=== PATIENT | male | born 1955 | race Caucasian/White ===

== ENCOUNTER 2017-09-07 10:01 | Emergency (ER) | payer MEDICARE, OTHER, SELFPAY ==
[2017-09-07 10:10] VITALS: BP 170/87; PULSE 85; RESP 16; TEMP 36.6; O2SAT 98; BMI 43.7
--- NOTE | 2017-09-07 10:30 | ED.BACK ---
HPI - Back Pain/Injury General Chief Complaint: Back Pain/Injury Stated Complaint: ELBOW/BACK OF ARM HURTS,NAUSEA Time Seen by Provider: 09/07/17 10:14 Source: patient and family Mode of arrival: ambulatory Limitations: no limitations History of Present Illness HPI Narrative: 61-year-old male with chief complaint of reproducible right shoulder pain with radiation to his right neck. He denies any numbness, tingling or weakness. He denies any swelling nor erythema or warmth. He denies any known injury. He denies any chest pain, pressure or heaviness. He denies any shortness of breath. Patient states that he may have injured his shoulder while attempting to abduct down and get into a car, he is a rather large man MD Complaint: back pain Onset (ago): hour(s) Duration: constant Severity: moderate Quality: sharp Relieving factors: immobilization Exacerbating factors: movement and walking Related Data Home Medications Medication Instructions Recorded Confirmed atorvastatin [Lipitor] 80 mg PO HS #0 02/07/11 09/07/17 furosemide 40 mg PO DAILY #0 02/06/16 09/07/17 multivitamin [Multiple Vitamins] 1 tab PO QDAY #0 07/27/16 09/07/17 omega 4-gry-jtv-fish oil [Fish Oil] 1,000 mg PO BID #0 07/27/16 09/07/17 vitamin B complex [B 1 tab PO QDAY #0 07/27/16 09/07/17 Complex-Vitamin B12] butalbital-acetaminophen [Bupap] 1 tab PO BID #0 08/10/16 09/07/17 amlodipine 10 mg PO DAILY 09/07/17 09/07/17 aspirin 81 mg PO DAILY 09/07/17 09/07/17 carvedilol 25 mg PO QID 09/07/17 09/07/17 clonidine 1 patch TOPICAL QWEEK 09/07/17 09/07/17 fluticasone 1 spray INTRANASAL DAILY 09/07/17 09/07/17 gabapentin [Neurontin] 1 tab PO BEDTIME 09/07/17 09/07/17 insulin aspart U-100 [Novolog 1 dose SUB-Q DIRECTED 09/07/17 09/07/17 Flexpen U-100 Insulin] insulin glargine [Lantus Solostar 1 dose SUB-Q DIRECTED 09/07/17 09/07/17 U-100 Insulin] lisinopril 40 mg PO DAILY 09/07/17 09/07/17 oxycodone-acetaminophen 1 tab PO Q8H PRN 09/07/17 09/07/17 Previous Rx's Medication Instructions Recorded methocarbamol [Robaxin] 500 mg PO QID PRN #14 tab 09/07/17 Allergies Allergy/AdvReac Type Severity Reaction Status Date / Time No Known Allergies Allergy Uncoded 05/26/17 12:17 Review of Systems Review of Systems All systems reviewed & are unremarkable except as noted in HPI and below Constitutional Denies chills, Denies fever(s), Denies lethargy and Denies weakness Eyes Denies change in vision, Denies eye discharge, Denies irritation and Denies loss of vision ENT Ears, Nose, Mouth, and Throat: Denies change in voice, Denies neck pain and Denies sore throat Cardiovascular Denies chest pain, Denies irregular heart rhythm, Denies lightheadedness, Denies palpitations, Denies dyspnea, Denies dyspnea on exertion and Denies orthopnea Respiratory Denies cough, Denies dyspnea, Denies dyspnea on exertion and Denies wheezing Gastrointestinal Gastrointestinal: Denies abdominal pain, Denies change in bowel habits, Denies diarrhea, Denies nausea and Denies vomiting Genitourinary Denies hematuria, Denies flank pain, Denies urinary incontinence and Denies urinary urgency Musculoskeletal Reports limited range of motion and Denies neck pain Integumentary/Breasts Denies pruritus, Denies erythema, Denies rash and Denies wounds Neurologic Denies confusion, Denies loss of vision and Denies weakness Psychiatric Denies anxiety, Denies confusion, Denies depression, Denies homicidal ideation and Denies suicidal ideation Endocrine Denies palpitations Hematologic/Lymphatic Denies easy bruising Allergic/Immunologic Denies wheezing PFSH Social History Smoking Status: Former smoker Exam Initial Vital Signs Initial Vital Signs: Vital Signs Temperature 98 F 09/07/17 10:10 Pulse Rate 85 09/07/17 10:10 Respiratory Rate 16 09/07/17 10:10 Blood Pressure 170/87 H 09/07/17 10:10 Pulse Oximetry 98 09/07/17 10:10 Const General: cooperative and well developed Nutritional Appearance: well nourished Orientation: alert, awake, oriented x3 and not confused [facility] Head: normocephalic and atraumatic Ears: external ears normal and TM's normal bilaterally Nose: external nose normal and No nasal discharge Face and sinus: sinuses nontender, face symmetric, no sinus tenderness and No dry mucous membranes Mouth: oral mucosae normal and moist mucous membranes Teeth and gingiva: dentition normal Throat: tonsils normal and uvula midline Eyes General: appearance normal, both eyes and all related structures Eyelids: eyelids normal Conjunctivae: conjunctivae normal Sclera: sclerae normal Pupils: PERRL EOM: EOM intact bilaterally Neck Neck: normal visual inspection, trachea midline, No lymphadenopathy, No midline deformity and No JVD Lymphatic: No lymphedema Other: Patient is tender to palpation in right traps Chest Chest: normal inspection of the chest Resp Effort & Inspection: normal respiratory effort, able to speak in complete sentences, no respiratory distress and no use of accessory muscles Auscultation: clear to auscultation bilaterally, no rales, no rhonchi and no wheezes Cardio Rate: regular rate Rhythm: regular rhythm Heart Sounds: no click, no gallops, no murmurs and no rubs Pulses: normal peripheral pulses GI Inspection: non-distended Palpation: soft, no hepatosplenomegaly, No guarding, No pulsatile mass and No tender Auscultation: normal bowel sounds Back/Spine/Pelvis Back: No CVA tenderness Cervical Spine: cervical ROM normal and No pain with cervical ROM Thoracic/Lumbar Spine: thoracic and lumbar spine normal to inspection Skin General: no rashes or lesions noted, No jaundice and No petechiae Neuro General: alert, oriented x3, gait normal and no focal motor deficits Speech: speech normal Extrem General: full ROM, no clubbing, cyanosis or edema, no pedal edema and no calf tenderness Right upper extremity: shoulder/upper arm (Patient has significant tenderness, sharp and stabbing with range of motion of the right shoulder. There is no redness, warmth or swelling. Patient is neurovascularly intact distal to the shoulder. No problems with elbow) Other: Patient feels better and a sling Psych Appearance: well kempt Mental Status: mental status grossly normal Attitude: cooperative Thought Content: normal and suicidality Judgment: judgment good Procedures Orthopedic Splinting/Casting Injury #1: Side: right Upper Extremity Injury Location: shoulder Upper Extremity Immobilizer: sling/shoulder immobilizer Discharge Plan Departure Patient Disposition: Home, Self-Care Clinical Impression: Muscle strain of right shoulder Discharge Date/Time: 09/07/17 11:56 Interventions: ED Discharge Assessment Last Done: 09/07/17 11:55 Instructions: DI for Shoulder Sprain Activity Restrictions/Additional Instructions: *You have been diagnosed with [ right shoulder strain ] *What to do: *Take medications as directed *Follow up with your primary care provider in 2-3 days, call for an appointment. Let them know you were seen in the Emergency Department and that we ask that you be seen in follow up *Return to ER if you should have any new, worsening or concerning symptoms, such as [increasing pain, weakness, numbness or tingling. Additionally the presence of swelling, redness, warmth is concerning as well ] Prescriptions: New methocarbamol [Robaxin] 500 mg tablet 500 mg PO QID PRN (Reason: spasm) Qty: 14 RF: 0 No Action atorvastatin [Lipitor] 80 MG tablet 80 mg PO HS Qty: 0 RF: 0 furosemide 40 MG tablet 40 mg PO DAILY Qty: 0 RF: 0 multivitamin [Multiple Vitamins] 1 EACH tablet 1 tab PO QDAY Qty: 0 RF: 0 vitamin B complex [B Complex-Vitamin B12] 1 EACH tablet 1 tab PO QDAY Qty: 0 RF: 0 omega 8-ejr-bae-fish oil [Fish Oil] 1,000 MG capsule 1,000 mg PO BID Qty: 0 RF: 0 butalbital-acetaminophen [Bupap] 50 MG/300 MG tablet 1 tab PO BID Qty: 0 RF: 0 carvedilol 25 mg tablet 25 mg PO QID RF: 0 gabapentin [Neurontin] 600 mg tablet 1 tab PO BEDTIME RF: 0 clonidine 0.1 mg/24 hr patch weekly 1 patch Topical QWEEK RF: 0 oxycodone-acetaminophen 5-325 mg tablet 1 tab PO Q8H PRN (Reason: Pain, Severe) RF: 0 amlodipine 10 mg tablet 10 mg PO DAILY RF: 0 lisinopril 40 mg tablet 40 mg PO DAILY RF: 0 fluticasone 50 mcg/actuation spray,suspension 1 spray Intranasal DAILY RF: 0 insulin aspart U-100 [Novolog Flexpen U-100 Insulin] 100 unit/mL insulin pen 1 dose Sub-Q DIRECTED RF: 0 insulin glargine [Lantus Solostar U-100 Insulin] 100 unit/mL (3 mL) insulin pen 1 dose Sub-Q DIRECTED RF: 0 aspirin 81 MG tablet,delayed release (DR/EC) 81 mg PO DAILY RF: 0
--- NOTE | 2017-09-07 10:44 | PC.NURSE ---
Right shoulder pain that radiates to right elbow; Increases with any movement;
[2017-09-07 11:09] VITALS: BP 166/74; PULSE 73; RESP 15; O2SAT 98
== END 2017-09-07 11:56 | disposition home or self-care (01) ==
PROVIDERS: Emergency Provider Emergency Medicine; PCP Family Medicine
DX: S46.911A Strain of unspecified muscle, fascia and tendon at shoulder and upper arm level, right arm, initial encounter (principal); T73.3XXA Exhaustion due to excessive exertion, initial encounter
CPT/HCPCS: 93005; 99283

== ENCOUNTER 2017-09-13 16:38 | Emergency (ER) | payer MEDICARE, OTHER, SELFPAY ==
[2017-09-13 16:54] VITALS: BP 164/90; PULSE 85; RESP 16; TEMP 37; O2SAT 100; BMI 46.0
--- NOTE | 2017-09-13 17:51 | ED_ITS ---
HPI - Back Pain/Injury <Nereida Langston PA-C - Last Filed: 09/13/17 22:13> General Chief Complaint: Back Pain/Injury Stated Complaint: RIGHT SIDE UPPER PAIN Time Seen by Provider: 09/13/17 17:50 Source: patient Mode of arrival: ambulatory Limitations: no limitations History of Present Illness HPI Narrative: This 61-year-old male returns to the ED due to persistent right thoracic area pain. He was seen here for this last week, felt to be musculoskeletal/muscle spasm. He states that he has been taking Percocet as well as Robaxin, though none today. He states that he does not think that has been helping much. He denies any new trauma. He denies any chest pain or dyspnea, new swelling or pain in his legs.. He states that pain is usually around the right-sided lower rib area, mostly in the back but can radiate through to the front. He states it is acutely worse if he sneezes, coughs, or with certain movements. He denies any abdominal pain, nausea, or vomiting. Denies any appetite change or pain with eating. He has had some constipation since taking Percocet but did have a bowel movement today. He denies any new urinary symptoms, rash, or other new complaints with this. Pain is not improving Related Data Home Medications Medication Instructions Recorded Confirmed atorvastatin [Lipitor] 80 mg PO BEDTIME #0 02/07/11 09/13/17 furosemide 40 mg PO DAILY #0 02/06/16 09/13/17 multivitamin [Multiple Vitamins] 1 tab PO QDAY #0 07/27/16 09/13/17 omega 3-gqa-rnx-fish oil [Fish Oil] 1,000 mg PO BID #0 07/27/16 09/13/17 vitamin B complex [B 1 tab PO QDAY #0 07/27/16 09/13/17 Complex-Vitamin B12] butalbital-acetaminophen [Bupap] 1 tab PO BID #0 08/10/16 09/13/17 amlodipine 10 mg PO DAILY 09/07/17 09/13/17 aspirin 81 mg PO DAILY 09/07/17 09/13/17 carvedilol 25 mg PO QID 09/07/17 09/13/17 clonidine 1 patch TOPICAL QWEEK 09/07/17 09/13/17 fluticasone 1 spray INTRANASAL DAILY 09/07/17 09/13/17 gabapentin [Neurontin] 1 tab PO BEDTIME 09/07/17 09/13/17 insulin aspart U-100 [Novolog 1 dose SUB-Q DIRECTED 09/07/17 09/13/17 Flexpen U-100 Insulin] insulin glargine [Lantus Solostar 1 dose SUB-Q DIRECTED 09/07/17 09/13/17 U-100 Insulin] lisinopril 40 mg PO DAILY 09/07/17 09/13/17 oxycodone-acetaminophen 1 tab PO Q8H PRN 09/07/17 09/13/17 hydrochlorothiazide 12.5 mg PO DAILY 09/13/17 09/13/17 Previous Rx's Medication Instructions Recorded methocarbamol [Robaxin] 500 mg PO QID PRN #14 tab 09/07/17 diazepam [Valium] 5 mg PO Q8H PRN #10 tab 09/13/17 Allergies Allergy/AdvReac Type Severity Reaction Status Date / Time No Known Allergies Allergy Verified 09/13/17 20:16 Review of Systems <Nereida Langston PA-C - Last Filed: 09/13/17 22:13> Review of Systems All systems reviewed & are unremarkable except as noted in HPI and below Exam <Nereida Langston PA-C - Last Filed: 09/13/17 22:13> Narrative Exam Narrative: GENERAL APPEARANCE: Patient lying on right side, in NAD HEENT: PERRL, EOMI, no scleral icterus NECK: Supple LUNGS: Clear to auscultation bilaterally. HEART: Rate and rhythm regular, normal S1 and S2, no S3 or S4. CHEST: Tender to palpation along the right 12th rib anterior and lateral border ABDOMEN: Obese, nontender, nondistended, bowel sounds present x 4 quadrants, no masses palpable, no hepatosplenomegaly. No CVAT EXTREMITIES: No edema, no calf tenderness DERMATOLOGIC: No jaundice or exanthem NEUROLOGIC: Alert and oriented with normal speech and coordination MUSCULOSKELETAL: Full range of motion of the right upper extremity. Tender with move from supine to sit, no tenderness over the cervical or thoracic spine. Appears to have some left trapezius spasm after moving to sit, no persistent tenderness aside from right 12th rib as noted above Initial Vital Signs Initial Vital Signs: Vital Signs Temperature 98.6 F 09/13/17 16:54 Pulse Rate 85 09/13/17 16:54 Respiratory Rate 16 09/13/17 16:54 Blood Pressure 164/90 H 09/13/17 16:54 Pulse Oximetry 100 09/13/17 16:54 <Leslie Storey DO - Last Filed: 09/14/17 01:44> Initial Vital Signs Initial Vital Signs: Vital Signs Temperature 98.6 F 09/13/17 16:54 Pulse Rate 85 09/13/17 16:54 Respiratory Rate 16 09/13/17 16:54 Blood Pressure 164/90 H 09/13/17 16:54 Pulse Oximetry 100 09/13/17 16:54 Course <Nereida Langston PA-C - Last Filed: 09/13/17 22:13> Additional Information: Patient is resting comfortably lying supine prior to discharge. He reported that diazepam had helped significantly versus previous trial of Robaxin. Advised no acute findings as far as gallbladder issues, rib fracture or lab abnormality. He does have chronic renal insufficiency. Advised return if any acutely worsening symptoms, otherwise trial of these medications and follow up with his PCP. He is agreeable Orders Ordered: ED Orders 09/13/17 18:21 US abdomen complete Stat XR ribs RT min 3V w CXR1V Stat 09/13/17 18:34 Complete Blood Count AUTO DIFF Stat Comprehensive Metabolic Panel Stat Lipase Stat Discontinued Medications Diazepam (Valium) 5 mg PO NOW ONE Stop: 09/13/17 20:15 Last Admin: 09/13/17 20:29 Dose: 5 mg Oxycodone/Acetaminophen (Percocet 5/325) 1 tab PO NOW ONE Stop: 09/13/17 20:15 Last Admin: 09/13/17 20:29 Dose: 1 tab Vital Signs - 8 hr 09/13/17 19:52 09/13/17 21:28 Temperature 98.0 F Pulse Rate 73 70 Respiratory Rate 16 17 Blood Pressure [Left Arm] 160/83 H 158/80 H Pulse Oximetry 97 96 <Leslie Storey DO - Last Filed: 09/14/17 01:44> Orders Ordered: ED Orders 09/13/17 18:21 US abdomen complete Stat XR ribs RT min 3V w CXR1V Stat 09/13/17 18:34 Complete Blood Count AUTO DIFF Stat Comprehensive Metabolic Panel Stat Lipase Stat Discontinued Medications Diazepam (Valium) 5 mg PO NOW ONE Stop: 09/13/17 20:15 Last Admin: 09/13/17 20:29 Dose: 5 mg Oxycodone/Acetaminophen (Percocet 5/325) 1 tab PO NOW ONE Stop: 09/13/17 20:15 Last Admin: 09/13/17 20:29 Dose: 1 tab Vital Signs - 8 hr 09/13/17 19:52 09/13/17 21:28 Temperature 98.0 F Pulse Rate 73 70 Respiratory Rate 16 17 Blood Pressure [Left Arm] 160/83 H 158/80 H Pulse Oximetry 97 96 MDM - Back Pain/Injury <Nereida Langston PA-C - Last Filed: 09/13/17 22:13> Lab Data Attestation: I reviewed the patient's lab results. Result diagrams: 09/13/17 18:34 09/13/17 18:34 Lab Results 09/13/17 09/13/17 Range/Units 18:34 18:34 WBC 7.3 (4.5-11.0) X10^3/uL RBC 5.58 (4.5-5.9) X10^6/uL Hgb 17.3 (13.5-17.5) g/dL Hct 50.7 (41-53) % MCV 90.9 (80-100) fL MCH 31.1 (26-34) PG MCHC 34.2 (30-36) % RDW 15.0 H (11.6-14.8) % Plt Count 179 (150-400) X10^3/uL Neut % (Auto) 79.6 H (50-75) % Lymph % (Auto) 8.9 L (25-40) % Louisa % (Auto) 9.2 (3-14) % Eos % (Auto) 1.8 L (2-4) % Baso % (Auto) 0.5 (0-2) % Neut # (Auto) 5800 (9131-4184) /uL Sodium 144 (137-145) mmol/L Potassium 4.8 (3.4-5.1) mmol/L Chloride 105 (98-107) mmol/L Carbon Dioxide 29 (22-32) mmol/L BUN 42 H (9-20) mg/dL Creatinine 2.20 H (0.66-1.25) mg/dL Estimated GFR 30.8 L (>60) mL/min BUN/Creatinine Ratio 19.1 (6-22) Glucose 98 (70-100) mg/dL Calcium 10.0 (8.4-10.2) mg/dL Total Bilirubin 0.9 (0.2-1.3) mg/dL AST 42 (17-59) IU/L ALT 39 (21-72) IU/L Alkaline Phosphatase 71 (38-126) U/L Total Protein 7.6 (6.3-8.2) g/dL Albumin 4.5 (3.5-5.0) g/dL Globulin 3.1 (1.7-4.1) g/dL Albumin/Globulin Ratio 1.5 (1.0-2.8) Lipase 46 (23-300) U/L Imaging Data Chest x-ray: Radiologist's impression: View Report History Print [address] [address] XRay Report Signed Patient: Hardeep Will MR#: [id number] : 1955 Acct:[id number] Age/Sex: 61 / M Date of Service: 09/13/17 Loc: ED Accession Number: [id number] Procedure: XR ribs RT min 3V w CXR1V Ordering Provider: Nereida Langston P.A-C PROCEDURE: XR RIBS RT MIN 3V W CXR 1V INDICATIONS: pain TECHNIQUE: 3 views of the right ribs were acquired, along with a single view chest. COMPARISON: formerly [facility], CHEST 2 VIEW, 07/22/2015, 12:33. FINDINGS: Surgical changes and devices: None. Bones and chest wall: No fractures or dislocations. No suspicious bony lesions. Overlying soft tissues appear unremarkable. Lungs and pleura: No pleural effusions or pneumothorax. Lungs appear clear. Mediastinum: Mediastinal contours appear normal. Heart size is normal. IMPRESSION: No visualized acute fracture or dislocation. However, if clinical concern and/or pain persist, short interval imaging followup in 7-10 days is recommended , as occult injury cannot be definitively excluded. Dictated by: Jesenia Hale M.D. on 09/13/2017 at 19:20 Approved by: Jesenia Hale M.D. on 09/13/2017 at 19:21 US - abdomen: Radiologist's impression: View Report History [address] [address] Ultrasound Report Signed Patient: Hardeep Will MR#: [id number] : 1955 Acct:[id number] Age/Sex: 61 / M Date of Service: 09/13/17 Loc: ED Accession Number: [id number] Procedure: US abdomen complete Ordering Provider: Nereida Langston P.A-C PROCEDURE: US ABDOMEN COMPLETE INDICATIONS: R. UQ pain TECHNIQUE: Real-time scanning was performed of the abdominal and retroperitoneal organs, with image documentation. COMPARISON: None. FINDINGS: Liver: Liver is not well-visualized secondary to patient body habitus. It was portions demonstrate steatosis. Gallbladder: Gallbladder demonstrates no visualized stones. Wall is within normal limits measuring 2.6 mm. Biliary ducts: Intrahepatic bile ducts are non-dilated. Extrahepatic bile duct caliber measures 5 mm. Normal is 6-7 mm or less in diameter, or 10 mm or less post-cholecystectomy. Pancreas: Not visualized. Spleen: Not visualized. Kidneys: Kidneys are normal in size and echotexture. Right kidney measures 13.0 cm long; left kidney measures 13.5 cm long. No hydronephrosis or nephrolithiasis. No solid masses. Aorta: Not visualized. Iliacs: Not visualized. IVC: Not visualized. Miscellaneous: No free abdominal fluid. IMPRESSION: Limited visualization of multiple areas secondary to patient body habitus. However, this was portions are unremarkable. Dictated by: Jesenia Hale M.D. on 09/13/2017 at 20:21 Approved by: Jesenia Hale M.D. on 09/13/2017 at 20:22 <Leslie Storey DO - Last Filed: 09/14/17 01:44> Lab Data Lab Results 09/13/17 09/13/17 Range/Units 18:34 18:34 WBC 7.3 (4.5-11.0) X10^3/uL RBC 5.58 (4.5-5.9) X10^6/uL Hgb 17.3 (13.5-17.5) g/dL Hct 50.7 (41-53) % MCV 90.9 (80-100) fL MCH 31.1 (26-34) PG MCHC 34.2 (30-36) % RDW 15.0 H (11.6-14.8) % Plt Count 179 (150-400) X10^3/uL Neut % (Auto) 79.6 H (50-75) % Lymph % (Auto) 8.9 L (25-40) % Louisa % (Auto) 9.2 (3-14) % Eos % (Auto) 1.8 L (2-4) % Baso % (Auto) 0.5 (0-2) % Neut # (Auto) 5800 (0210-8723) /uL Sodium 144 (137-145) mmol/L Potassium 4.8 (3.4-5.1) mmol/L Chloride 105 (98-107) mmol/L Carbon Dioxide 29 (22-32) mmol/L BUN 42 H (9-20) mg/dL Creatinine 2.20 H (0.66-1.25) mg/dL Estimated GFR 30.8 L (>60) mL/min BUN/Creatinine Ratio 19.1 (6-22) Glucose 98 (70-100) mg/dL Calcium 10.0 (8.4-10.2) mg/dL Total Bilirubin 0.9 (0.2-1.3) mg/dL AST 42 (17-59) IU/L ALT 39 (21-72) IU/L Alkaline Phosphatase 71 (38-126) U/L Total Protein 7.6 (6.3-8.2) g/dL Albumin 4.5 (3.5-5.0) g/dL Globulin 3.1 (1.7-4.1) g/dL Albumin/Globulin Ratio 1.5 (1.0-2.8) Lipase 46 (23-300) U/L Discharge Plan Departure Patient Disposition: Home, Self-Care Clinical Impression: Intercostal muscle strain, Back pain, thoracic Discharge Date/Time: 09/13/17 21:54 Interventions: ED Discharge Assessment Last Done: 09/13/17 21:53 Instructions: DI for Costochondritis, DI for Back Spasm Activity Restrictions/Additional Instructions: I have given you instructions for costochondritis because this is a similar condition to the rib pain you are having. You can continue the Percocet that you have already been prescribed as needed, however since the methocarbamol has not been helpful for you. You can take the Valium/diazepam as needed for muscle spasm. Remember that these can make you sleepy. Please follow-up with your PCP in the next few days to determine whether any other treatment, such as physical therapy may be helpful. You can also try your lidocaine patches along the rib to see if this is helpful. It is also safe to use ice and heat to see if these are helpful. No evidence of gallbladder problem or other issue was found on your imaging or blood work today, however if you have any acutely worsening symptoms you should return Prescriptions: New diazepam [Valium] 5 mg tablet 5 mg PO Q8H PRN (Reason: muscle spasm) Qty: 10 RF: 0 No Action atorvastatin [Lipitor] 80 MG tablet 80 mg PO BEDTIME Qty: 0 RF: 0 furosemide 40 MG tablet 40 mg PO DAILY Qty: 0 RF: 0 multivitamin [Multiple Vitamins] 1 EACH tablet 1 tab PO QDAY Qty: 0 RF: 0 vitamin B complex [B Complex-Vitamin B12] 1 EACH tablet 1 tab PO QDAY Qty: 0 RF: 0 omega 3-xij-ufb-fish oil [Fish Oil] 1,000 MG capsule 1,000 mg PO BID Qty: 0 RF: 0 butalbital-acetaminophen [Bupap] 50 MG/300 MG tablet 1 tab PO BID Qty: 0 RF: 0 carvedilol 25 mg tablet 25 mg PO QID RF: 0 gabapentin [Neurontin] 600 mg tablet 1 tab PO BEDTIME RF: 0 clonidine 0.1 mg/24 hr patch weekly 1 patch Topical QWEEK RF: 0 oxycodone-acetaminophen 5-325 mg tablet 1 tab PO Q8H PRN (Reason: Pain, Severe) RF: 0 amlodipine 10 mg tablet 10 mg PO DAILY RF: 0 lisinopril 40 mg tablet 40 mg PO DAILY RF: 0 fluticasone 50 mcg/actuation spray,suspension 1 spray Intranasal DAILY RF: 0 insulin aspart U-100 [Novolog Flexpen U-100 Insulin] 100 unit/mL insulin pen 1 dose Sub-Q DIRECTED RF: 0 insulin glargine [Lantus Solostar U-100 Insulin] 100 unit/mL (3 mL) insulin pen 1 dose Sub-Q DIRECTED RF: 0 aspirin 81 MG tablet,delayed release (DR/EC) 81 mg PO DAILY RF: 0 methocarbamol [Robaxin] 500 mg tablet 500 mg PO QID PRN (Reason: spasm) Qty: 14 RF: 0 hydrochlorothiazide 12.5 mg tablet 12.5 mg PO DAILY RF: 0 Referrals: Judy Mcgrath DO [Primary Care Provider] - <Leslie Storey DO - Last Filed: 09/14/17 01:44> Cosign ED Attending Cosashleeature Attestation: I was immediately available in the department for consultation. Documentation has been reviewed. I agree with assessment and plan.
--- NOTE | 2017-09-13 18:21 | DI.US.S_ITS ---
PROCEDURE: US ABDOMEN COMPLETE INDICATIONS: R. UQ pain TECHNIQUE: Real-time scanning was performed of the abdominal and retroperitoneal organs, with image documentation. COMPARISON: None. FINDINGS: Liver: Liver is not well-visualized secondary to patient body habitus. It was portions demonstrate steatosis. Gallbladder: Gallbladder demonstrates no visualized stones. Wall is within normal limits measuring 2.6 mm. Biliary ducts: Intrahepatic bile ducts are non-dilated. Extrahepatic bile duct caliber measures 5 mm. Normal is 6-7 mm or less in diameter, or 10 mm or less post-cholecystectomy. Pancreas: Not visualized. Spleen: Not visualized. Kidneys: Kidneys are normal in size and echotexture. Right kidney measures 13.0 cm long; left kidney measures 13.5 cm long. No hydronephrosis or nephrolithiasis. No solid masses. Aorta: Not visualized. Iliacs: Not visualized. IVC: Not visualized. Miscellaneous: No free abdominal fluid. IMPRESSION: Limited visualization of multiple areas secondary to patient body habitus. However, this was portions are unremarkable. Dictated by: Jesenia Hale M.D. on 09/13/2017 at 20:21 Approved by: Jesenia Hale M.D. on 09/13/2017 at 20:22
--- NOTE | 2017-09-13 18:21 | DI.RAD.S_ITS ---
PROCEDURE: XR RIBS RT MIN 3V W CXR 1V INDICATIONS: pain TECHNIQUE: 3 views of the right ribs were acquired, along with a single view chest. COMPARISON: [facility], , CHEST 2 VIEW, 07/22/2015, 12:33. FINDINGS: Surgical changes and devices: None. Bones and chest wall: No fractures or dislocations. No suspicious bony lesions. Overlying soft tissues appear unremarkable. Lungs and pleura: No pleural effusions or pneumothorax. Lungs appear clear. Mediastinum: Mediastinal contours appear normal. Heart size is normal. IMPRESSION: No visualized acute fracture or dislocation. However, if clinical concern and/or pain persist, short interval imaging followup in 7-10 days is recommended, as occult injury cannot be definitively excluded. Dictated by: Jesenia Hale M.D. on 09/13/2017 at 19:20 Approved by: Jesenia Hale M.D. on 09/13/2017 at 19:21
[2017-09-13 18:47] LABS: Add Manual Diff / Slide Review NO; Basophils Percent Auto 0.5 % (0-2); Eosinophils Percent Auto 1.8 % (2-4); Hematocrit 50.7 % (41-53); Hemoglobin 17.3 g/dL (13.5-17.5); Lymphocytes Percent Auto 8.9 % (25-40); Mean Corpuscular HGB Conc 34.2 % (30-36); Mean Corpuscular Hemoglobin 31.1 PG (26-34); Mean Corpuscular Volume 90.9 fL (80-100); Monocytes Percent Auto 9.2 % (3-14); Neutrophils Absolute Auto 5800 /uL (3000-5900); Neutrophils Percent Auto 79.6 % (50-75); Platelet Count 179 X10^3/uL (150-400); Red Blood Cell Count 5.58 X10^6/uL (4.5-5.9); White Blood Cell Count 7.3 X10^3/uL (4.5-11.0)
[2017-09-13 18:54] LABS: Alanine Aminotransferase 39 IU/L (21-72); Albumin 4.5 g/dL (3.5-5.0); Albumin Globulin Ratio 1.5 (1.0-2.8); Alkaline Phosphatase 71 U/L (38-126); Aspartate Aminotransferase 42 IU/L (17-59); BUN Creatinine Ratio 19.1 (6-22); Bilirubin Total 0.9 mg/dL (0.2-1.3); Blood Urea Nitrogen 42 mg/dL (9-20); Carbon Dioxide 29 mmol/L (22-32); Chloride 105 mmol/L (98-107); Estimated Glomerular Filt Rate 30.8 mL/min (>60); Globulin 3.1 g/dL (1.7-4.1); Glucose 98 mg/dL (70-100); HEMOLYSIS < 15 (0-50); Lipase 46 U/L (23-300); Potassium 4.8 mmol/L (3.4-5.1); Sodium 144 mmol/L (137-145); Total Protein 7.6 g/dL (6.3-8.2)
[2017-09-13 19:52] VITALS: BP 160/83; PULSE 73; RESP 16; TEMP 36.7; O2SAT 97
[2017-09-13] MEDS: diazePAM 5 MG TABLET PO (20:29)
[2017-09-13] MEDS: OXYCODONE/ACETAMINOPHEN 5/325 TABLET 1 TAB PO (20:29)
[2017-09-13 21:28] VITALS: BP 158/80; PULSE 70; RESP 17; O2SAT 96
== END 2017-09-13 21:54 | disposition home or self-care (01) ==
PROVIDERS: Emergency Provider Internal Medicine; PCP Family Medicine
DX: S29.011A Strain of muscle and tendon of front wall of thorax, initial encounter (principal); M54.6 Pain in thoracic spine
CPT/HCPCS: 36415; 71101; 76700; 80053; 83690; 85025; 99282; 99285

== ENCOUNTER → 2017-11-18 12:20 | Outpatient (CLI) | payer MEDICARE, OTHER, SELFPAY ==
--- NOTE | 2017-11-18 | DI.ECHO.S_ITS ---
[place] [facility] +---------+ : : [address] : : : : [id number] : : : : Phone: [phone] Echocardiogram Report + + :Name: ASHTYN VELA Study Date: 11/18/2017 Height: 75 in : :[facility] Exam Location: [facility] Weight: 354 lb : : Gender: Male BSA: 2.8 m2 : :: 1955 Age: 62 yrs BP: 142/80 mmHg: :Reason For Study: PERSISTENT A FIB : :Ordering Physician: Christel : :Nunu Rick Performed By: Nadege Smart : :Referring: CHRISTEL RICK : + + Interpretation Summary 1) Mild concentric left ventricular hypertrophy with normal size, wall motion, and systolic function (EF 55-60%). 2) Normal right ventricular size and function. 3) No significant valvular abnormalities. 4) The IVC is dilated (diameter is greater than 2.1 cm) and it collapses less than 50% with a sniff. This suggests a high right atrial pressure of 15 mm Hg. 5) Compared to the Echo done 08/22/2014, no significant change. Procedure: A two-dimensional transthoracic echocardiogram with color flow and Doppler was performed. The study quality was technically difficult. Comparison is made with the echocardiogram of 08/22/14. A contrast injection of Definity was performed to improve assessment of LV function. The patient was in atrial fibrillation with heart rates between 73 and 93 bpm during the exam. Left Ventricle: There is mild concentric left ventricular hypertrophy. The left ventricle is normal in size. The left ventricular ejection fraction is normal. The ejection fraction is estimated to be 55-60%. There are no focal wall motion abnormalities. Diastolic function could not be accurately assessed due to atrial fibrillation. Diastolic parameters suggest a relaxation abnormality of the left ventricle, consistent with probable normal filling pressures. Right Ventricle: The right ventricle is normal in size and function. Atria: The left atrium is mildly dilated. Right atrial size is normal. There is no Doppler evidence for an interatrial shunt. Mitral Valve: The mitral valve is normal. There is trace mitral regurgitation. Aortic Valve: The aortic valve is trileaflet. There is mild aortic valve sclerosis. The aortic valve opens well. There is no aortic valve stenosis. No aortic regurgitation is present. Tricuspid Valve: The tricuspid valve is normal. There is trace tricuspid regurgitation. The right ventricular systolic pressure is estimated to be at least least 41 mmHg based on an estimated right atrial pressure of 15 mm Hg. Pulmonic Valve: The pulmonic valve is not well seen, but is grossly normal. There is a trace or physiologic amount of pulmonic regurgitation. Great Vessels: The aortic root is normal size. The ascending aorta is normal in size. The aortic arch could not be visualized. The pulmonary artery branches are not well visualized. The IVC is dilated (diameter is greater than 2.1 cm) and it collapses less than 50% with a sniff. This suggests a high right atrial pressure of 15 mm Hg. Pericardium/ Pleura There is no pericardial effusion. There is no pleural effusion. MMode/2D Measurements & Calculations LVIDd: 4.8 cm LVOT diam: 2.7 cm LVIDs: 3.4 cm Ao root diam: 3.9 cm FS: 29.1 % asc Aorta Diam: 3.5 cm EPSS: 0.50 cm IVSd: 1.3 cm LVPWd: 1.3 cm LV millan. diameter/BSA (cm/m^2): 1.7 LV sys. diameter/BSA (cm/m^2): 1.2 LA A2 area: 32.6 cm2 RA long axis: 6.1 cm LA A4 area: 29.7 cm2 RA area: 24.4 cm2 LA length (vol): 7.3 cm RA vol: 82.7 ml LA vol: 112.3 ml RA : 29.6 ml/m2 LA vol index: 40.1 ml/m2 IVC diam: 2.8 cm RVD1 (basal): 4.2 cm TAPSE: 1.7 cm Doppler Measurements & Calculations Ao V2 max: 111.0 cm/sec LVOT Max Zane: 95.9 cm/sec Ao V2 mean: 78.5 cm/sec LV V1 max P.7 mmHg Ao max P.0 mmHg LV V1 VTI: 18.5 cm Ao mean P.7 mmHg GLADIS(I,D): 5.1 cm2 Ao V2 VTI: 21.0 cm GLADIS(V,D): 5.0 cm2 sev ratio: 0.88 GLADIS indexed to BSA (cm^2/m^2): 1.8 MV E max zane: 134.3 cm/sec TR max zane: 253.3 cm/sec Med Peak E' Zane: 10.3 cm/sec TR max P.7 mmHg E/E' med: 13.1 PA V2 max: 70.9 cm/sec Lat Peak E' Zane: 12.4 cm/sec PA V2 mean: 50.6 cm/sec E/E' lat: 10.9 PA mean P.1 mmHg E/e' average: 12.0 PA pr(Accel): 21.6 mmHg Reading Physician:02:11 PM
== END ==
PROVIDERS: PCP Family Medicine; Visit Provider Internal Medicine Cardiovascular Disease
DX: I35.8 Other nonrheumatic aortic valve disorders (principal); I48.1 Persistent atrial fibrillation
CPT/HCPCS: C8929; Q9957

== ENCOUNTER 2017-12-03 06:11 | Day surgery (SDC) | payer MEDICARE, OTHER, SELFPAY ==
[2017-11-22 15:29] VITALS: BMI 45.2
[2017-12-03 07:13] VITALS: BP 151/89; PULSE 79; RESP 17; TEMP 36.4; O2SAT 96; BMI 43.7
--- NOTE | 2017-12-03 07:39 | PM.PREOP ---
Pre-operative Note Interval Note Pre-op Check: Yes History & Physical Reviewed by Physician Changes: No
--- NOTE | 2017-12-03 07:39 | PM.OP.1 ---
Operative Date/Time/Diagnoses Date of procedure: 12/03/17 Time of procedure: 07:40 Pre-op diagnosis: Right fifth metatarsal non-healing ulceration Post-op diagnosis: same Procedure & Clinicians Procedure: Right fifth metatarsal head excision, wound tissue excision and debridement Surgeon: Lashon Preciado Click Yes if Unassisted: Yes Operative Notes Closure Type: primary Specimen(s): other (Culture deep fifth metatarsal head area) Estimated Blood Loss (mL): 30 Procedure in detail: Patient was brought to the operating room and placed on the operating table in the supine position a tourniquet was placed about the ankle. After appropriate padding and securing on the bed, anesthesia at rendered IV sedation and anesthesia was then rendered to the right 5th metatarsal area. The foot and ankle were prepped and draped in usual aseptic manner. After a check of anesthesia the wound on the plantar surface of the 5th metatarsal head was extended as an incision distally and proximally. The incision was full thickness being careful to identify and retract all neural and vascular structures. All bleeders were cauterized and ligated as necessary. Deeply into the 5th metatarsal head area cultures were taken. It was at this point when the IV antibiotic was given. The area was then debrided of of good amount of the thickened subcutaneous tissue that had built up surrounding the ulceration. The 5th metatarsal was isolated and approximately a 2 cm length was removed from the head proximally. In the remaining bone was beveled a little with a manual rasp and no areas of purulence or necrosis were noted at the bone. The area was irrigated with copious amounts of normal sterile saline. Further revision of the skin at the ulceration was performed with excision and debridement of necrotic tissue down to bleeding. It was determined this could be closed primarily and after irrigation Vicryl was used subcutaneously and then a 2 0 and 3 0 nylon suture was used for the skin. Prior to closure the tourniquet was deflated and a prompt hyperemic response was seen to the foot. The foot was dressed with a sterile lightly compressive dressing. And his boot was placed. Complications: none Condition: stable Disposition: PACU Plan for aftercare: Following a period of postoperative monitoring the patient will be discharged home on written and oral postop instructions including keeping the dressing dry and intact, awaiting ambulation to the foot. Elevating the foot when seated at home, DVT prevention techniques have been reviewed. He may remove the boot periodically for air exchange but should not get up and move around without having the boot on for safety purposes. Will continue to do dressing changes at his postoperative visits insult such time it appears that there has been enough healing to remove the sutures.
[2017-12-03] MEDS: LACTATED RINGERS 1,000 ML 42 ML IV (07:52)
--- NOTE | 2017-12-03 08:27 | SUR.OPER ---
Supine on padded OR bed, head on pillow, arms secured on padded arm boards at <90 degrees abduction, legs uncrossed, safety belt at thigh,bump under right thigh, lower leg extension on left side of bed.
[2017-12-03] MEDS: CEFAZOLIN VIAL 2 GM in SODIUM CHLORIDE 0.9% 100 ML 200 ML IV (08:28)
[2017-12-03] MEDS: BUPIVACAINE 0.5% (PF) VIAL 30 ML INJ (08:38)
[2017-12-03] MEDS: LIDOCAINE 2% INJ SDV 5 ML INJ (08:38)
[2017-12-03 09:20] VITALS: BP 111/71; PULSE 61; RESP 16; TEMP 36.8; O2SAT 95
[2017-12-03 09:35] VITALS: BP 129/79; PULSE 81; RESP 24; O2SAT 96
[2017-12-03 09:45] VITALS: O2SAT 97
--- NOTE | 2017-12-03 19:01 | SUR.PHASEII ---
0945 Dr. Sarah notified cb [id number], no new orders.
== END 2017-12-03 10:02 | disposition home or self-care (01) ==
PROVIDERS: PCP Family Medicine; Visit Provider Podiatrist
PROC: (CPT 28113; principal; 2017-12-03 07:45)
DX: E11.621 Type 2 diabetes mellitus with foot ulcer (principal); L97.512 Non-pressure chronic ulcer of other part of right foot with fat layer exposed; E11.42 Type 2 diabetes mellitus with diabetic polyneuropathy; E11.49 Type 2 diabetes mellitus with other diabetic neurological complication; G47.33 Obstructive sleep apnea (adult) (pediatric); G25.81 Restless legs syndrome; M19.90 Unspecified osteoarthritis, unspecified site; E66.9 Obesity, unspecified; I10 Essential (primary) hypertension; E78.00 Pure hypercholesterolemia, unspecified; Z79.4 Long term (current) use of insulin; Z68.41 Body mass index [BMI] 40.0-44.9, adult
CPT/HCPCS: 28113; 87070; 87075; 87077; 87147; 87186; 87205; J0690; J2250; J2704; J3010

== ENCOUNTER → 2017-12-17 15:14 | Outpatient (CLI) | payer MEDICARE, OTHER, SELFPAY | PROVIDERS: PCP Family Medicine; Visit Provider Family Medicine | DX: S91.301A Unspecified open wound, right foot, initial encounter (principal); T81.31XA Disruption of external operation (surgical) wound, not elsewhere classified, initial encounter; L03.115 Cellulitis of right lower limb; L08.9 Local infection of the skin and subcutaneous tissue, unspecified | CPT/HCPCS: 87070; 87075; 87077; 87186; 87205; 99204; 99213 ==

== ENCOUNTER → 2017-12-20 11:07 | Outpatient (CLI) | payer MEDICARE, OTHER, SELFPAY ==
--- NOTE | 2017-12-20 | DI.RAD.S_ITS ---
PROCEDURE: XR FOOT RT MIN 3V INDICATIONS: LAB/RIGHT FOOT PAIN TECHNIQUE: 3 views of the foot were acquired. COMPARISON: [facility], CR, XR FOOT 3+ VIEWS RIGHT, 10/05/2017, 7:31. [facility], CR, FOOT 3V LEFT, 01/29/2014, 11:21. FINDINGS: Bones: Status post resection of the distal fifth metatarsal. Adjacent soft tissue swelling. No definite focal osseous destruction. First MTP and great toe interphalangeal joint degeneration. Plantar calcaneal spur. Soft tissues: No tibiotalar joint effusion. Achilles tendon appears normal. IMPRESSION: Status post fifth metatarsal osteotomy. No definite focal osseous destruction is identified to suggest advanced osteomyelitis, although if there is clinical concern for early infection, MRI could be performed. Dictated by: Jacob Morales M.D. on 12/20/2017 at 13:13 Approved by: Jacob Morales M.D. on 12/20/2017 at 13:21
[2017-12-20 12:23] LABS: Hematocrit 42.7 % (41-53); Hemoglobin 14.4 g/dL (13.5-17.5); Mean Corpuscular HGB Conc 33.7 % (30-36); Mean Corpuscular Hemoglobin 29.8 PG (26-34); Mean Corpuscular Volume 88.4 fL (80-100); Platelet Count 372 X10^3/uL (150-400); Red Blood Cell Count 4.83 X10^6/uL (4.5-5.9); Red Cell Distribution Width 13.9 % (11.6-14.8); White Blood Cell Count 8.1 X10^3/uL (4.5-11.0)
[2017-12-20 12:25] LABS: Add Manual Diff / Slide Review YES
[2017-12-20 12:29] LABS: Hemoglobin A1C% w Est Avg Glu 7.8 % (4.0-6.0)
[2017-12-20 12:47] LABS: Erythrocyte Sedimentation Rate 62 MM/HR (0-15)
[2017-12-20 12:51] LABS: Neutrophils Absolute Manual 6561 /uL (3000-5900); Total Cells Counted 100
[2017-12-20 12:52] LABS: RBC Morphology Normal Morphology
[2017-12-20 13:20] LABS: Alanine Aminotransferase 46 IU/L (21-72); Albumin 3.6 g/dL (3.5-5.0); Albumin Globulin Ratio 1.3 (1.0-2.8); Alkaline Phosphatase 87 U/L (38-126); Aspartate Aminotransferase 27 IU/L (17-59); BUN Creatinine Ratio 21.7 (6-22); Bilirubin Total 0.4 mg/dL (0.2-1.3); Blood Urea Nitrogen 50 mg/dL (9-20); Calcium 9.8 mg/dL (8.4-10.2); Carbon Dioxide 22 mmol/L (22-32); Chloride 108 mmol/L (98-107); Estimated Glomerular Filt Rate 29.2 mL/min (>60); Globulin 2.7 g/dL (1.7-4.1); Glucose 129 mg/dL (80-110); HEMOLYSIS < 15 (0-50); Sodium 145 mmol/L (137-145); Total Protein 6.3 g/dL (6.3-8.2)
[2017-12-20 13:21] LABS: Potassium 5.4 mmol/L (3.4-5.1)
[2017-12-20 13:26] LABS: Prealbumin 24.8 mg/dL (17.6-36.0)
== END ==
PROVIDERS: PCP Family Medicine; Visit Provider Family Medicine
DX: E11.621 Type 2 diabetes mellitus with foot ulcer (principal); L97.512 Non-pressure chronic ulcer of other part of right foot with fat layer exposed; M77.31 Calcaneal spur, right foot
CPT/HCPCS: 36415; 73630; 80053; 83036; 84134; 85025; 85651; 86140

== ENCOUNTER → 2017-12-24 09:41 | Outpatient (CLI) | payer MEDICARE, OTHER, SELFPAY | PROVIDERS: PCP Family Medicine; Visit Provider Family Medicine | DX: E11.621 Type 2 diabetes mellitus with foot ulcer (principal); L97.511 Non-pressure chronic ulcer of other part of right foot limited to breakdown of skin; T81.31XA Disruption of external operation (surgical) wound, not elsewhere classified, initial encounter; S91.301A Unspecified open wound, right foot, initial encounter; B96.5 Pseudomonas (aeruginosa) (mallei) (pseudomallei) as the cause of diseases classified elsewhere | CPT/HCPCS: 99212; 99214 ==

== ENCOUNTER 2017-12-24 11:30 | Emergency (ER) | payer MEDICARE, OTHER, SELFPAY ==
[2017-12-24 12:02] VITALS: BP 127/78; PULSE 65; RESP 18; TEMP 36.8; O2SAT 98; BMI 41.2
--- NOTE | 2017-12-24 13:20 | ED_ITS ---
HPI - Wound/Laceration <Nereida Langston PA-C - Last Filed: 12/24/17 18:25> General Chief Complaint: Wound/Laceration Stated Complaint: TWO WOUNDS ON RT FOOT Time Seen by Provider: 12/24/17 13:16 Source: patient and old records reviewed Mode of arrival: ambulatory Limitations: no limitations History of Present Illness HPI narrative: This 62-year-old male is sent from the wound Care Center today after evaluation of chronic right foot wound and cellulitis. He had right 5th metatarsal had excision and wound debridement 3 weeks ago and has had nonhealing wound since, thought exacerbated by his walking boot. He has had redness and pain and states that Dr. Preciado did an I&D in her office. Has had packing placed and monitoring at the wound clinic. He and states that Dr. Castro advised admission due to not responding to oral antibiotics. He had an x -ray 3 days ago along with lab work, and was scheduled for an MRI to further evaluate next week. 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 He states he has had a little bit of nausea since on the antibiotics. He denies any new fever. He states that the foot has been painful all along, not acutely worse today. Related Data Home Medications Medication Instructions Recorded Confirmed atorvastatin [Lipitor] 80 mg PO BEDTIME #0 02/07/11 12/24/17 furosemide 40 mg PO DAILY PRN #0 02/06/16 12/24/17 vitamin B complex [B 1 tab PO QDAY #0 07/27/16 12/24/17 Complex-Vitamin B12] amlodipine 10 mg PO DAILY 09/07/17 12/24/17 carvedilol 50 mg PO BID 09/07/17 12/24/17 clonidine 1 patch TOPICAL QWEEK 09/07/17 12/24/17 fluticasone 1 spray INTRANASAL DAILY 09/07/17 12/24/17 gabapentin [Neurontin] 1 tab PO BEDTIME 09/07/17 12/24/17 insulin aspart U-100 [Novolog 16 units SUBCUT TIDWM 09/07/17 12/24/17 Flexpen U-100 Insulin] insulin glargine [Lantus Solostar 64 units SUB-Q QAM 09/07/17 12/24/17 U-100 Insulin] lisinopril 40 mg PO DAILY 09/07/17 12/24/17 oxycodone-acetaminophen 1 tab PO DAILY 09/07/17 12/24/17 calcium carbonate-vitamin D3 1 cap PO DAILY 12/24/17 12/24/17 [Calcium 600 + D(3)] flaxseed oil-omega 3,6,9 1 cap PO DAILY 12/24/17 12/24/17 lrvtrfcy-uwg-GW-lycopen-lutein 1 tab PO DAILY 12/24/17 12/24/17 [Centrum Silver] warfarin 1 mg PO BEDTIME 12/24/17 12/24/17 warfarin 5 mg PO BEDTIME 12/24/17 12/24/17 Previous Rx's Medication Instructions Recorded amoxicillin-pot clavulanate 1 tab PO Q12H #20 tab 12/24/17 [Augmentin] levofloxacin [Levaquin] 750 mg PO Q48H #5 tab 12/24/17 Allergies Allergy/AdvReac Type Severity Reaction Status Date / Time No Known Allergies Allergy Verified 12/24/17 12:05 Review of Systems <Nereida Langston PA-C - Last Filed: 12/24/17 18:25> Review of Systems All systems reviewed & are unremarkable except as noted in HPI and below Exam <Nereida Langston PA-C - Last Filed: 12/24/17 18:25> Narrative Exam Narrative: GENERAL APPEARANCE: Patient sitting comfortably, in no distress. NECK/THYROID: Neck supple LUNGS: Clear to auscultation bilaterally. HEART: Regular rate and rhythm without murmur, normal S1, S2, no S3 or S4. EXTREMITIES: No cyanosis, mild edema NEUROLOGIC: Alert and oriented, normal speech and coordination. DERMATOLOGIC: Right lateral forefoot there is dusky erythema. There is a chronic appearing ulceration near the right 5th metatarsal base dorsum that appears to extend to bone. That portion of the foot is moderately fluctuant and tender. Corresponding skin on the plantar surface is open and cracked Initial Vital Signs Initial Vital Signs: Vital Signs Temperature 98.3 F 12/24/17 12:02 Pulse Rate 65 12/24/17 12:02 Respiratory Rate 18 12/24/17 12:02 Blood Pressure 127/78 12/24/17 12:02 Pulse Oximetry 98 12/24/17 12:02 <Giuseppe Horowitz DO - Last Filed: 12/24/17 18:58> Initial Vital Signs Initial Vital Signs: Vital Signs Temperature 98.3 F 12/24/17 12:02 Pulse Rate 65 12/24/17 12:02 Respiratory Rate 18 12/24/17 12:02 Blood Pressure 127/78 12/24/17 12:02 Pulse Oximetry 98 12/24/17 12:02 Course <Nereida Langston PA-C - Last Filed: 12/24/17 18:25> Additional Information: I spoke with Dr. Hi from wound care and reviewed patient's findings including improvement in inflammatory markers, lack of white count or elevated lactase. He is afebrile. We agree not acutely worse today and Dr. Hi felt that given these findings is appropriate to try outpatient treatment again. He suggested starting Levaquin and Augmentin with appropriate renal dosing. He advised packing could be left out, continue absorbent dressing. Patient has MRI scheduled for Wednesday and he also has follow-up with Dr. Preciado scheduled prior to that. Can f/u with wound care if needed later next week. He agreed to return if acutely worse over the weekend Orders Ordered: ED Orders 12/24/17 14:00 Wound Culture and Gram Stain Stat 12/24/17 14:02 C-Reactive Protein Quant Stat Complete Blood Count AUTO DIFF Stat Comprehensive Metabolic Panel Stat Erythrocyte Sedimentation Rate Stat Lactate (Lactic Acid) Stat Partial Thromboplastin Time Stat Prothrombin Time INR Stat 12/24/17 14:24 Blood Culture Stat Vital Signs - 8 hr 12/24/17 12:02 12/24/17 15:45 12/24/17 16:04 Temperature 98.3 F Pulse Rate 65 78 75 Respiratory Rate 18 16 18 Blood Pressure 127/78 Blood Pressure [Right Arm] 141/75 H 149/79 H Pulse Oximetry 98 98 100 <Giuseppe Horowitz DO - Last Filed: 12/24/17 18:58> Orders Ordered: ED Orders 12/24/17 14:00 Wound Culture and Gram Stain Stat 12/24/17 14:02 C-Reactive Protein Quant Stat Complete Blood Count AUTO DIFF Stat Comprehensive Metabolic Panel Stat Erythrocyte Sedimentation Rate Stat Lactate (Lactic Acid) Stat Partial Thromboplastin Time Stat Prothrombin Time INR Stat 12/24/17 14:24 Blood Culture Stat Vital Signs - 8 hr 12/24/17 12:02 12/24/17 15:45 12/24/17 16:04 Temperature 98.3 F Pulse Rate 65 78 75 Respiratory Rate 18 16 18 Blood Pressure 127/78 Blood Pressure [Right Arm] 141/75 H 149/79 H Pulse Oximetry 98 98 100 MDM - Wound/Laceration <Nereida Langston PA-C - Last Filed: 12/24/17 18:25> Medical Records Attestation: I reviewed the patient's medical records. Lab Data Attestation: I reviewed the patient's lab results. Result diagrams: 12/24/17 14:02 12/24/17 14:02 Lab Results 12/24/17 12/24/17 12/24/17 Range/Units 14: 14:02 14:02 WBC 7.0 (4.5-11.0) X10^3/uL RBC 4.51 (4.5-5.9) X10^6/uL Hgb 13.7 (13.5-17.5) g/dL Hct 40.0 L (41-53) % MCV 88.8 (80-100) fL MCH 30.4 (26-34) PG MCHC 34.2 (30-36) % RDW 13.8 (11.6-14.8) % Plt Count 275 (150-400) X10^3/uL Neut % (Auto) 80.3 H (50-75) % Lymph % (Auto) 9.7 L (25-40) % Metcalfe % (Auto) 7.7 (3-14) % Eos % (Auto) 1.6 L (2-4) % Baso % (Auto) 0.7 (0-2) % Neut # (Auto) 5600 (5518-6928) /uL ESR (0-15) MM/HR PT 16.9 H (10.1-12.7) SECONDS INR 1.5 H (0.9-1.3) APTT 40 H (26.4-36.2) SECONDS Sodium 143 (137-145) mmol/L Potassium 5.5 H (3.4-5.1) mmol/L Chloride 109 H (98-107) mmol/L Carbon Dioxide 23 (22-32) mmol/L BUN 57 H (9-20) mg/dL Creatinine 2.20 H (0.66-1.25) mg/dL Estimated GFR 30.7 L (>60) mL/min BUN/Creatinine Ratio 25.9 H (6-22) Glucose 104 (80-110) mg/dL Lactate (0.7-2.1) mmol/L Calcium 9.7 (8.4-10.2) mg/dL Total Bilirubin 0.4 (0.2-1.3) mg/dL AST 20 (17-59) IU/L ALT 36 (21-72) IU/L Alkaline Phosphatase 77 (38-126) U/L C-Reactive Protein 0.8 (<1.0) mg/dL Total Protein 7.1 (6.3-8.2) g/dL Albumin 3.9 (3.5-5.0) g/dL Globulin 3.2 (1.7-4.1) g/dL Albumin/Globulin Ratio 1.2 (1.0-2.8) 12/24/17 12/24/17 Range/Units 14:02 14:02 WBC (4.5-11.0) X10^3/uL RBC (4.5-5.9) X10^6/uL Hgb (13.5-17.5) g/dL Hct (41-53) % MCV (80-100) fL MCH (26-34) PG MCHC (30-36) % RDW (11.6-14.8) % Plt Count (150-400) X10^3/uL Neut % (Auto) (50-75) % Lymph % (Auto) (25-40) % Metcalfe % (Auto) (3-14) % Eos % (Auto) (2-4) % Baso % (Auto) (0-2) % Neut # (Auto) (2299-6799) /uL ESR 47 H (0-15) MM/HR PT (10.1-12.7) SECONDS INR (0.9-1.3) APTT (26.4-36.2) SECONDS Sodium (137-145) mmol/L Potassium (3.4-5.1) mmol/L Chloride (98-107) mmol/L Carbon Dioxide (22-32) mmol/L BUN (9-20) mg/dL Creatinine (0.66-1.25) mg/dL Estimated GFR (>60) mL/min BUN/Creatinine Ratio (6-22) Glucose (80-110) mg/dL Lactate 1.0 (0.7-2.1) mmol/L Calcium (8.4-10.2) mg/dL Total Bilirubin (0.2-1.3) mg/dL AST (17-59) IU/L ALT (21-72) IU/L Alkaline Phosphatase (38-126) U/L C-Reactive Protein (<1.0) mg/dL Total Protein (6.3-8.2) g/dL Albumin (3.5-5.0) g/dL Globulin (1.7-4.1) g/dL Albumin/Globulin Ratio (1.0-2.8) <Giuseppe Horowitz, DO - Last Filed: 12/24/17 18:58> Lab Data Lab Results 12/24/17 12/24/17 12/24/17 Range/Units 14:02 14:02 14:02 WBC 7.0 (4.5-11.0) X10^3/uL RBC 4.51 (4.5-5.9) X10^6/uL Hgb 13.7 (13.5-17.5) g/dL Hct 40.0 L (41-53) % MCV 88.8 (80-100) fL MCH 30.4 (26-34) PG MCHC 34.2 (30-36) % RDW 13.8 (11.6-14.8) % Plt Count 275 (150-400) X10^3/uL Neut % (Auto) 80.3 H (50-75) % Lymph % (Auto) 9.7 L (25-40) % Metcalfe % (Auto) 7.7 (3-14) % Eos % (Auto) 1.6 L (2-4) % Baso % (Auto) 0.7 (0-2) % Neut # (Auto) 5600 (8097-4505) /uL ESR (0-15) MM/HR PT 16.9 H (10.1-12.7) SECONDS INR 1.5 H (0.9-1.3) APTT 40 H (26.4-36.2) SECONDS Sodium 143 (137-145) mmol/L Potassium 5.5 H (3.4-5.1) mmol/L Chloride 109 H (98-107) mmol/L Carbon Dioxide 23 (22-32) mmol/L BUN 57 H (9-20) mg/dL Creatinine 2.20 H (0.66-1.25) mg/dL Estimated GFR 30.7 L (>60) mL/min BUN/Creatinine Ratio 25.9 H (6-22) Glucose 104 (80-110) mg/dL Lactate (0.7-2.1) mmol/L Calcium 9.7 (8.4-10.2) mg/dL Total Bilirubin 0.4 (0.2-1.3) mg/dL AST 20 (17-59) IU/L ALT 36 (21-72) IU/L Alkaline Phosphatase 77 (38-126) U/L C-Reactive Protein 0.8 (<1.0) mg/dL Total Protein 7.1 (6.3-8.2) g/dL Albumin 3.9 (3.5-5.0) g/dL Globulin 3.2 (1.7-4.1) g/dL Albumin/Globulin Ratio 1.2 (1.0-2.8) 12/24/17 12/24/17 Range/Units 14:02 14:02 WBC (4.5-11.0) X10^3/uL RBC (4.5-5.9) X10^6/uL Hgb (13.5-17.5) g/dL Hct (41-53) % MCV (80-100) fL MCH (26-34) PG MCHC (30-36) % RDW (11.6-14.8) % Plt Count (150-400) X10^3/uL Neut % (Auto) (50-75) % Lymph % (Auto) (25-40) % Metcalfe % (Auto) (3-14) % Eos % (Auto) (2-4) % Baso % (Auto) (0-2) % Neut # (Auto) (7450-8161) /uL ESR 47 H (0-15) MM/HR PT (10.1-12.7) SECONDS INR (0.9-1.3) APTT (26.4-36.2) SECONDS Sodium (137-145) mmol/L Potassium (3.4-5.1) mmol/L Chloride (98-107) mmol/L Carbon Dioxide (22-32) mmol/L BUN (9-20) mg/dL Creatinine (0.66-1.25) mg/dL Estimated GFR (>60) mL/min BUN/Creatinine Ratio (6-22) Glucose (80-110) mg/dL Lactate 1.0 (0.7-2.1) mmol/L Calcium (8.4-10.2) mg/dL Total Bilirubin (0.2-1.3) mg/dL AST (17-59) IU/L ALT (21-72) IU/L Alkaline Phosphatase (38-126) U/L C-Reactive Protein (<1.0) mg/dL Total Protein (6.3-8.2) g/dL Albumin (3.5-5.0) g/dL Globulin (1.7-4.1) g/dL Albumin/Globulin Ratio (1.0-2.8) Discharge Plan Departure Patient Disposition: Home Clinical Impression: Cellulitis of foot, right, Chronic foot ulcer Discharge Date/Time: 12/24/17 16:27 Interventions: ED Discharge Assessment Last Done: 12/24/17 16:28 Instructions: DI for Cellulitis -- Adult Activity Restrictions/Additional Instructions: Please return if you have acutely worsening symptoms over the weekend such as more pain, swelling, or redness, or new symptoms such as fever. Please stop your clindamycin and change to the new antibiotics that I have sent to the pharmacy for you. Dr. Castro recommended changing to these based on your most recent wound cultures (he felt that it is reasonable to treat you as an outpatient based on improvement in your labwork). I did send another culture off today. Since you are starting the new antibiotics, you should have your INR (Coumadin level) rechecked on Wednesday or Wednesday. You do not need to repack the wound. Please use a nonstick absorbent dressing (continue using the ones you got most recently from wound care), and if you are just sitting in a chair, you can leave the wound open air which may help the moisture and healing. Please follow up with Dr. Preciado 1st of the week as you have planned. You should proceed with the MRI. Prescriptions: New levofloxacin [Levaquin] 750 mg tablet 750 mg PO Q48H Qty: 5 RF: 0 amoxicillin-pot clavulanate [Augmentin] 500-125 mg tablet 1 tab PO Q12H Qty: 20 RF: 0 Discontinued clindamycin HCl 150 mg capsule 300 mg PO QID RF: 0 No Action atorvastatin [Lipitor] 80 MG tablet 80 mg PO BEDTIME Qty: 0 RF: 0 furosemide 40 MG tablet 40 mg PO DAILY PRN (Reason: swelling) Qty: 0 RF: 0 vitamin B complex [B Complex-Vitamin B12] 1 EACH tablet 1 tab PO QDAY Qty: 0 RF: 0 carvedilol 25 mg tablet 50 mg PO BID RF: 0 gabapentin [Neurontin] 600 mg tablet 1 tab PO BEDTIME RF: 0 clonidine 0.1 mg/24 hr patch weekly 1 patch Topical QWEEK RF: 0 oxycodone-acetaminophen 5-325 mg tablet 1 tab PO DAILY RF: 0 amlodipine 10 mg tablet 10 mg PO DAILY RF: 0 lisinopril 40 mg tablet 40 mg PO DAILY RF: 0 fluticasone 50 mcg/actuation spray,suspension 1 spray Intranasal DAILY RF: 0 insulin aspart U-100 [Novolog Flexpen U-100 Insulin] 100 unit/mL insulin pen 16 units subcut TIDWM RF: 0 insulin glargine [Lantus Solostar U-100 Insulin] 100 unit/mL (3 mL) insulin pen 64 units Sub-Q QAM RF: 0 warfarin 5 mg tablet 5 mg PO BEDTIME RF: 0 warfarin 1 mg tablet 1 mg PO BEDTIME RF: 0 vxrzljhz-zwb-EP-lycopen-lutein [Centrum Silver] 0.4-300-250 mg-mcg-mcg Tablet 1 tab PO DAILY RF: 0 calcium carbonate-vitamin D3 [Calcium 600 + D(3)] 600 mg calcium- 200 unit Capsule 1 cap PO DAILY RF: 0 flaxseed oil-omega 3,6,9 1,400 mg 1 cap PO DAILY RF: 0 Referrals: Lashon Preciado DPM [Physician] - Quoc Hi MD [Physician] - Judy Mcgrath DO [Primary Care Provider] - <Giuseppe Horowitz DO - Last Filed: 12/24/17 18:58> Cosign ED Attending Cosignature Attestation: I was immediately available in the department for consultation. Documentation has been reviewed. I agree with assessment and plan.
[2017-12-24 14:18] LABS: Add Manual Diff / Slide Review NO; Basophils Percent Auto 0.7 % (0-2); Eosinophils Percent Auto 1.6 % (2-4); Hemoglobin 13.7 g/dL (13.5-17.5); Lymphocytes Percent Auto 9.7 % (25-40); Mean Corpuscular HGB Conc 34.2 % (30-36); Mean Corpuscular Hemoglobin 30.4 PG (26-34); Mean Corpuscular Volume 88.8 fL (80-100); Monocytes Percent Auto 7.7 % (3-14); Neutrophils Absolute Auto 5600 /uL (3000-5900); Neutrophils Percent Auto 80.3 % (50-75); Platelet Count 275 X10^3/uL (150-400); Red Blood Cell Count 4.51 X10^6/uL (4.5-5.9); Red Cell Distribution Width 13.8 % (11.6-14.8)
[2017-12-24 14:28] LABS: INR 1.5 (0.9-1.3); Prothrombin Time 16.9 SECONDS (10.1-12.7)
[2017-12-24 14:30] LABS: PTT Partial Thromboplastin Tim 40 SECONDS (26.4-36.2)
[2017-12-24 14:36] LABS: Alanine Aminotransferase 36 IU/L (21-72); Albumin 3.9 g/dL (3.5-5.0); Albumin Globulin Ratio 1.2 (1.0-2.8); Alkaline Phosphatase 77 U/L (38-126); Aspartate Aminotransferase 20 IU/L (17-59); BUN Creatinine Ratio 25.9 (6-22); Bilirubin Total 0.4 mg/dL (0.2-1.3); Blood Urea Nitrogen 57 mg/dL (9-20); C-Reactive Protein Quant 0.8 mg/dL (<1.0); Calcium 9.7 mg/dL (8.4-10.2); Carbon Dioxide 23 mmol/L (22-32); Chloride 109 mmol/L (98-107); Estimated Glomerular Filt Rate 30.7 mL/min (>60); Globulin 3.2 g/dL (1.7-4.1); Glucose 104 mg/dL (80-110); HEMOLYSIS < 15 (0-50); Sodium 143 mmol/L (137-145); Total Protein 7.1 g/dL (6.3-8.2)
[2017-12-24 14:38] LABS: Potassium 5.5 mmol/L (3.4-5.1)
[2017-12-24 14:56] LABS: Erythrocyte Sedimentation Rate 47 MM/HR (0-15)
[2017-12-24 15:45] VITALS: BP 141/75; PULSE 78; RESP 16; O2SAT 98
[2017-12-24 16:04] VITALS: BP 149/79; PULSE 75; RESP 18; O2SAT 100
== END 2017-12-24 16:27 | disposition home or self-care (01) ==
PROVIDERS: Emergency Provider Internal Medicine; PCP Family Medicine
DX: E11.621 Type 2 diabetes mellitus with foot ulcer (principal); L97.513 Non-pressure chronic ulcer of other part of right foot with necrosis of muscle; L03.115 Cellulitis of right lower limb; T81.31XA Disruption of external operation (surgical) wound, not elsewhere classified, initial encounter; S91.301A Unspecified open wound, right foot, initial encounter; B96.5 Pseudomonas (aeruginosa) (mallei) (pseudomallei) as the cause of diseases classified elsewhere
CPT/HCPCS: 36591; 80053; 83605; 85025; 85610; 85651; 85730; 86140; 87040; 87070; 87147; 87205; 99212; 99283

== ENCOUNTER → 2017-12-28 12:19 | Outpatient (CLI) | payer MEDICARE, OTHER, SELFPAY ==
[2017-12-28 12:57] LABS: INR 1.4 (0.9-1.3); Prothrombin Time 15.4 SECONDS (10.1-12.7)
[2017-12-28 13:00] LABS: BUN Creatinine Ratio 19.6 (6-22); Blood Urea Nitrogen 49 mg/dL (9-20); Estimated Glomerular Filt Rate 26.5 mL/min (>60)
== END ==
PROVIDERS: PCP Family Medicine; Visit Provider Podiatrist
DX: I48.91 Unspecified atrial fibrillation (principal); E11.621 Type 2 diabetes mellitus with foot ulcer; L03.115 Cellulitis of right lower limb
CPT/HCPCS: 36415; 82565; 84520; 85610

== ENCOUNTER → 2017-12-28 14:02 | Outpatient (CLI) | payer MEDICARE, OTHER, SELFPAY ==
--- NOTE | 2017-12-28 | DI.MRI.S_ITS ---
PROCEDURE: MR FOOT RT WO CON INDICATIONS: LATERAL RIGHT FOOT CHRONIC ULCER TECHNIQUE: Noncontrast sagittal T1 spin echo and T2 fast spin echo with fat saturation, long-axis T1 spin echo and T2 fast spin echo with fat saturation, short-axis T1 spin echo and T2 fast spin echo with fat saturation through the forefoot. Please note that contrast was not administered on this examination related to the patient's low glomerular filtration rate of less than 30. COMPARISON: [facility], CR, XR FOOT RT MIN 3V, 12/20/2017, 11:12. [facility] [place], CR, XR FOOT 3+ VIEWS RIGHT, 10/05/2017, 7:31. FINDINGS: Image quality: Diagnostic. 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 There is diffuse marrow edema identified involving the stump of the 5th metatarsal. There also is marrow edema identified involving the adjacent proximal phalanx of the 5th toe. No additional areas of suspicious marrow edema are evident involving the right midfoot or forefoot. No displaced fractures or dislocations are evident. No suspicious osseous lesions are evident. There are mild degenerative changes noted involving the midfoot and forefoot joints. Soft tissues: Prominent subcutaneous edema about the right midfoot and forefoot is evident. There does appear to be a fluid collection along the dorsal-the lateral aspect of the vein forefoot at the site of the 5th metatarsal osteotomy, which measures at least 3.5 x 1.7 x 4.8 cm. Susceptibility artifact within this fluid is incidentally noted. There may be air contained within this region. No additional loculated fluid collections are appreciated. There is atrophy involving the intrinsic muscles of the forefoot. Is not at the tendinous structures are normal characterized on this study. IMPRESSION: 1. Post surgical changes related to amputation of the head of the 5th metatarsal. Diffuse edema involving the remaining portions of the 5th metatarsal could be related to the recent surgery. However, osteomyelitis is suspected given the adjacent loculated fluid collection. 2. Marrow edema involving the proximal phalanx of the 5th toe also is suspicious for osteomyelitis. 3. Large heterogeneous loculated fluid collection along the lateral margin of the 5th metatarsal may be postoperative in could represent a hematoma. However, an infectious process such as an abscess cannot be excluded and clinical correlation is recommended. 4. Extensive subcutaneous edema about the right forefoot. Dictated by: Fernie Peters M.D. on 12/28/2017 at 16:20 Approved by: Fernie Peters M.D. on 12/28/2017 at 16:24
== END ==
PROVIDERS: PCP Family Medicine; Visit Provider Podiatrist
DX: L97.512 Non-pressure chronic ulcer of other part of right foot with fat layer exposed (principal); I48.91 Unspecified atrial fibrillation; E11.621 Type 2 diabetes mellitus with foot ulcer; L03.115 Cellulitis of right lower limb
CPT/HCPCS: 36415; 73718; 82565; 84520; 85610

== ENCOUNTER 2017-12-31 12:28 | Day surgery (SDC) | payer MEDICARE, OTHER, SELFPAY ==
[2017-12-30 14:27] VITALS: BMI 42.2
[2017-12-31] VITALS (8 sets, daily range): BP systolic 96–141; BP diastolic 72–88; PULSE 78–84; RESP 12–18; TEMP 36.1–36.7; O2SAT 95–100; BMI 42.2
--- NOTE | 2017-12-31 16:22 | SUR.OPER ---
Supine on padded OR bed, head on pillow, arms secured on padded arm boards at <90 degrees abduction, right leg is under control of surgeon, bump under right hip, safety belt at thigh, tape over blanket over left lower leg.
[2017-12-31] MEDS: LIDOCAINE 2% INJ MDV 20 ML INJ (16:33)
[2017-12-31] MEDS: BUPIVACAINE 0.5% W/ EPI (PF) VIAL 30 ML INJ (16:33)
[2017-12-31] MEDS: CLINDAMYCIN 900 MG/50 ML PIGGYBACK 50 MG IV (16:40)
--- NOTE | 2017-12-31 17:32 | PM.PREOP ---
Pre-operative Note Interval Note Pre-op Check: Yes History & Physical Reviewed by Physician Changes: No
--- NOTE | 2017-12-31 17:33 | PM.OP.1 ---
Operative Date/Time/Diagnoses Date of procedure: 12/31/17 Time of procedure: 17:33 Pre-op diagnosis: Right foot suspected abscess, possible osteomyelitis Post-op diagnosis: same Procedure & Clinicians Procedure: Right foot fifth metatarsophalangeal joint incision and drainage, biopsy bone Same procedure as scheduled: Yes Indications: Suspected abscess and possible osteomyelitis Surgeon: Lashon Preciado Click Yes if Unassisted: Yes Anesthesia Type: Sedation and Local Operative Notes Closure Type: primary Specimen(s): other (culture bone 1) fifth metatarsal distal and 2) proximal phalanx base #5) Implants & Drains: 02/18 iodonated Nu-Gauze Estimated Blood Loss (mL): 30 Blood products transfused: none Tourniquet time (min): 11 Procedure in detail: The patient is brought to the operating room and placed on the operative table in supine position. After induction of sedation by the anesthesiologist anesthesia was obtained to the right foot. Tourniquet was placed about the ankle in the foot and ankle were prepped and draped in the usual aseptic manner. After check of anesthesia incision was made over the dorsal lateral 5th metatarsal phalangeal joint. The incision was full thickness and immediately a few cc of blood was removed. There is no purulent discharge and no malodor. The area around those tissues appeared to be in various stages of healing with fibrous tissue as well as some that had shown some atrophy. The area was irrigated with copious amounts of normal sterile saline. The tourniquet was inflated and the rongeur was used to remove the portion of the leading and distally of the 5th metatarsal and that was sent for culture. A 2nd piece of bone was also harvested from the base of the proximal phalanx 5. Which was also sent for culture separately. The area was once again irrigated with normal saline and the tourniquet was deflated. Prompt hyperemic response was seen to the foot. Closure of the dorsal aspect of the foot was performed with 3 0 nylon up to the point of its most proximal aspect where this was the area that the Nu Gauze exited after I did gently packed into the wound. Sterile lightly compressive dressing was placed on the foot and he was brought to PACU with vital signs stable. Complications: none Condition: stable Disposition: PACU Plan for aftercare: We await the results of his culture hopefully within the next few days. However right nail, following a period of postoperative monitoring, the patient will be discharged home on written and oral postoperative instructions including keeping the dressing dry and intact, continuing to avoid ambulation to the foot. Elevating the foot when seated at home, DVT prevention techniques have been reviewed. He is unable to have the packing changed this weekend so we will leave that in and have that removed on Wednesday when we see him, earlier if concerns prior. At that point we will hopefully get some early news on the culture results and set up a follow-up with myself as well as wound care.
--- NOTE | 2017-12-31 18:11 | SUR.PHASEII ---
Late note: Had spoken with Dr Mei about restarting patient warfarin to find it had not been stopped. Still patient reminded if drainage through dressing (alonso) seen to call MD office even after hours. Apparently the INR was 1.4.
== END 2017-12-31 17:57 | disposition home or self-care (01) ==
LOC: OR 12:30
PROVIDERS: PCP Family Medicine; Visit Provider Podiatrist
PROC: (CPT 28005; principal; 2017-12-31 14:15)
DX: E11.621 Type 2 diabetes mellitus with foot ulcer (principal); E11.49 Type 2 diabetes mellitus with other diabetic neurological complication; E11.42 Type 2 diabetes mellitus with diabetic polyneuropathy; L02.611 Cutaneous abscess of right foot; Z79.4 Long term (current) use of insulin
CPT/HCPCS: 28005; 28022; 87070; 87075; 87205; J2250; J2704; J3010

== ENCOUNTER → 2018-01-14 08:38 | Outpatient (CLI) | payer MEDICARE, OTHER, SELFPAY | PROVIDERS: PCP Family Medicine; Visit Provider Family Medicine | DX: E11.621 Type 2 diabetes mellitus with foot ulcer (principal); L97.512 Non-pressure chronic ulcer of other part of right foot with fat layer exposed; L03.115 Cellulitis of right lower limb; L97.513 Non-pressure chronic ulcer of other part of right foot with necrosis of muscle | CPT/HCPCS: 11042; 11043; 99212 ==

== ENCOUNTER → 2018-01-18 07:53 | Outpatient (CLI) | payer MEDICARE, OTHER, SELFPAY ==
[2018-01-18 08:19] LABS: INR 2.2 (0.9-1.3)
== END ==
PROVIDERS: PCP Family Medicine; Visit Provider Family Medicine
DX: I48.91 Unspecified atrial fibrillation (principal)
CPT/HCPCS: 36415; 85610

== ENCOUNTER → 2018-01-21 10:22 | Outpatient (CLI) | payer MEDICARE, OTHER, SELFPAY | PROVIDERS: PCP Family Medicine; Visit Provider Family Medicine | DX: T81.31XA Disruption of external operation (surgical) wound, not elsewhere classified, initial encounter (principal); S91.301A Unspecified open wound, right foot, initial encounter; L03.115 Cellulitis of right lower limb | CPT/HCPCS: 11042; 11043; 87070; 87075; 87077; 87186; 87205; 99213 ==

== ENCOUNTER → 2018-01-28 08:30 | Outpatient (CLI) | payer MEDICARE, OTHER, SELFPAY | PROVIDERS: PCP Family Medicine; Visit Provider Family Medicine | DX: E11.621 Type 2 diabetes mellitus with foot ulcer (principal); L97.511 Non-pressure chronic ulcer of other part of right foot limited to breakdown of skin; T81.31XA Disruption of external operation (surgical) wound, not elsewhere classified, initial encounter; S91.301A Unspecified open wound, right foot, initial encounter; L08.9 Local infection of the skin and subcutaneous tissue, unspecified | CPT/HCPCS: 11042; 97597; 99212 ==

== ENCOUNTER 2018-01-31 11:35 | Emergency (ER) | payer MEDICARE, OTHER, SELFPAY ==
[2018-01-31 12:05] VITALS: BP 122/77; PULSE 68; RESP 16; TEMP 36.9; O2SAT 98
--- NOTE | 2018-01-31 13:02 | ED.SKABFB ---
HPI - Skin/Abscess/Foreign Bdy <Nereida Langston PA-C - Last Filed: 01/31/18 20:41> General Chief complaint: Skin/Abscess/Foreign Body Stated complaint: wound on right foot not healing Time Seen by Provider: 01/31/18 13:02 Source: patient and old records reviewed Mode of arrival: ambulatory Limitations: no limitations History of Present Illness HPI narrative: This 62-year-old male was directed to come in by wound Care Center due to increased right ankle area pain onset last night without any known trauma. He states that it was radiating into his lateral foot where he has been treated for ongoing wound infection and osteomyelitis. He states that he woke up with this after sleeping about 4 hr and his ft and ankle area were twitching. He states it is tender to touch and with putting weight on the area. He has been receiving ongoing treatment by Podiatry and Wound Care and is on antibiotics. He still has some drainage from his wound but no change overnight. He has not had any increased redness or new swelling. He has not had any new fever. He states that he tried Percocet that he had at home for pain as well as some THC cream neither of which helped. States that this feels different than his previous neuropathy pain. He denies any other new complaints on systems review Related Data Home Medications Medication Instructions Recorded Confirmed atorvastatin [Lipitor] 80 mg PO BEDTIME #0 02/07/11 01/31/18 furosemide 40 mg PO DAILY #0 02/06/16 01/31/18 vitamin B complex [B 1 tab PO DAILY #0 07/27/16 01/31/18 Complex-Vitamin B12] amlodipine 10 mg PO DAILY 09/07/17 01/31/18 carvedilol 50 mg PO BID 09/07/17 01/31/18 clonidine 1 patch TOPICAL QWEEK 09/07/17 01/31/18 fluticasone 1 spray INTRANASAL DAILY 09/07/17 01/31/18 gabapentin [Neurontin] 1 tab PO BEDTIME 09/07/17 01/31/18 insulin aspart U-100 [Novolog 16 units SUBCUT TIDWM 09/07/17 01/31/18 Flexpen U-100 Insulin] insulin glargine [Lantus Solostar 64 units SUB-Q QAM 09/07/17 01/31/18 U-100 Insulin] lisinopril 80 mg PO DAILY 09/07/17 01/31/18 oxycodone-acetaminophen 1 tab PO Q6H PRN 09/07/17 01/31/18 calcium carbonate-vitamin D3 1 cap PO DAILY 12/24/17 01/31/18 [Calcium 600 + D(3)] flaxseed oil-omega 3,6,9 1 cap PO DAILY 12/24/17 01/31/18 warfarin 1 mg PO BEDTIME 12/24/17 01/31/18 warfarin 5 mg PO BEDTIME 12/24/17 01/31/18 clindamycin HCl 150 mg PO Q6H PRN 01/31/18 01/31/18 multivitamin 1 cap PO DAILY 01/31/18 01/31/18 multivitamin 1 tab PO DAILY 01/31/18 01/31/18 omega-3 fatty acids [Fish Oil 1,000 mg PO DAILY 01/31/18 01/31/18 Concentrate] oxycodone 5 mg PO Q4-6H PRN 01/31/18 01/31/18 Previous Rx's Medication Instructions Recorded amoxicillin-pot clavulanate 1 tab PO Q12H #20 tab 12/24/17 [Augmentin] levofloxacin [Levaquin] 750 mg PO Q48H #5 tab 12/24/17 gabapentin 300 mg PO Q8H #30 cap 01/31/18 Allergies Allergy/AdvReac Type Severity Reaction Status Date / Time No Known Allergies Allergy Verified 12/31/17 13:14 Review of Systems <Nereida Langston PA-C - Last Filed: 01/31/18 20:41> Review of Systems All systems reviewed & are unremarkable except as noted in HPI and below Exam <Nereida Langston PA-C - Last Filed: 01/31/18 20:41> Narrative Exam Narrative: GENERAL APPEARANCE: Patient sitting comfortably, in no distress. NECK/THYROID: Neck supple LUNGS: Clear to auscultation bilaterally. HEART: Regular rate and rhythm without murmur, normal S1, S2, no S3 or S4. EXTREMITIES: No cyanosis, mild edema. No calf tenderness on the right NEUROLOGIC: Alert and oriented, normal speech, and coordination. DERM: Right foot at the 5th metatarsal base there is a chronic appearing partially closed wound approximately 1 cm in length 5 mm in depth, not actively draining. The skin is a little bit dusky but there is no erythema surrounding. There is minimal tenderness around the wound and surrounding skin. There is a tiny 1 mm black flat eschar on the medial great toe with normal skin surrounding MS: TTP R. anterior lateral ankle to the base of the 5th metatarsal. Normal range of motion of the ankle nonweightbearing. Initial Vital Signs Initial Vital Signs: Vital Signs Temperature 98.5 F 01/31/18 12:05 Pulse Rate 68 01/31/18 12:05 Respiratory Rate 16 01/31/18 12:05 Blood Pressure 122/77 01/31/18 12:05 Pulse Oximetry 98 01/31/18 12:05 <Leslie Storey DO - Last Filed: 02/01/18 08:08> Initial Vital Signs Initial Vital Signs: Vital Signs Temperature 98.5 F 01/31/18 12:05 Pulse Rate 68 01/31/18 12:05 Respiratory Rate 16 01/31/18 12:05 Blood Pressure 122/77 01/31/18 12:05 Pulse Oximetry 98 01/31/18 12:05 Course <Nereida Langston PA-C - Last Filed: 01/31/18 20:41> Additional Information: Patient reported improvement in pain after Valium, was able to fall asleep which he was not able last night. Discussed that muscle spasm could contribute to his pain. He has also been off of gabapentin for 2 or 3 weeks and does have a history of neuropathy. His wound appears greatly improved from when I saw him last month, no evidence of acute cellulitis on exam or on lab work. I reviewed x-ray findings with Dr. Nick multimedia instructional designer for Orthopedics as Dr. Preciado is off today, and he advised that this can wait until follow-up with Dr. Preciado to review tomorrow, did not think further imaging needed today. Orders Ordered: Discontinued Medications Albuterol (Ventolin) 2.5 mg INH NOW ONE Stop: 01/31/18 15:25 Last Admin: 01/31/18 16:07 Dose: Diazepam (Valium) 5 mg PO NOW ONE Stop: 01/31/18 13:23 Last Admin: 01/31/18 13:35 Dose: 5 mg Vital Signs - 8 hr 01/31/18 13:42 01/31/18 16:36 Pulse Rate 67 62 Respiratory Rate 19 20 Blood Pressure 142/61 H Blood Pressure [Right Arm] 129/73 Pulse Oximetry 99 98 <Leslie Storey DO - Last Filed: 02/01/18 08:08> Orders Ordered: Discontinued Medications Albuterol (Ventolin) 2.5 mg INH NOW ONE Stop: 01/31/18 15:25 Last Admin: 01/31/18 16:07 Dose: Diazepam (Valium) 5 mg PO NOW ONE Stop: 01/31/18 13:23 Last Admin: 01/31/18 13:35 Dose: 5 mg Vital Signs - 8 hr 01/31/18 13:42 01/31/18 16:36 Pulse Rate 67 62 Respiratory Rate 19 20 Blood Pressure 142/61 H Blood Pressure [Right Arm] 129/73 Pulse Oximetry 99 98 MDM - Skin/Abscess/Foreign Bdy <Nereida Langston PA-C - Last Filed: 01/31/18 20:41> Lab Data Result diagrams: 01/31/18 14:27 Lab Results 01/31/18 01/31/18 01/31/18 Range/Units 14:27 14:27 14:27 WBC 5.5 (4.5-11.0) X10^3/uL RBC 4.95 (4.5-5.9) X10^6/uL Hgb 14.4 (13.5-17.5) g/dL Hct 43.7 (41-53) % MCV 88.3 (80-100) fL MCH 29.1 (26-34) PG MCHC 33.0 (30-36) % RDW 14.7 (11.6-14.8) % Plt Count 171 (150-400) X10^3/uL Neut % (Auto) 77.0 H (50-75) % Lymph % (Auto) 11.5 L (25-40) % [place] % (Auto) 8.7 (3-14) % Eos % (Auto) 2.3 (2-4) % Baso % (Auto) 0.5 (0-2) % Neut # (Auto) 4200 (2244-3435) /uL PT 19.3 H (10.1-12.7) SECONDS INR 1.7 H (0.9-1.3) APTT 42 H (26.4-36.2) SECONDS Lactate 0.9 (0.7-2.1) mmol/L Imaging Data ankle: Radiologist's impression: View Report History [address] [address] XRay Report Signed Patient: Hardeep Will MR#: [id number] : 1955 Acct:[id number] Age/Sex: 62 / M Date of Service: 01/31/18 Loc: ED Accession Number: [id number] Procedure: XR ankle RT min 3V Ordering Provider: Nereida Langston P.A-C PROCEDURE: XR ANKLE RT MIN 3V INDICATIONS: lateral pain, no trauma TECHNIQUE: 3 views of the ankle were acquired. COMPARISON: [facility], CR, XR FOOT RT MIN 3V, 12/20/2017, 11:12. [facility], CR, XR FOOT RT MIN 3V, 01/31/2018, 13:50. [facility], , MR FOOT RT WO CON, 12/28/2017, 15:00. FINDINGS: Bones: No fractures or dislocations. Ankle mortise is normally aligned. No suspicious bony lesions. There is calcaneal spurring. Possible subtle periosteal reaction over the lateral malleolus. Soft tissues: No tibiotalar joint effusion. Achilles tendon appears normal. Mild soft tissue swelling. IMPRESSION: ? Subtle periosteal reaction over the lateral malleolus. Dictated by: Nikole Mora M.D. on 01/31/2018 at 14:41 Approved by: Nikole Mora M.D. on 01/31/2018 at 14:45 foot: Radiologist's impression: View Report History [address] [address] XRay Report Signed Patient: Hardeep Will MR#: [id number] : 1955 Acct:[id number] Age/Sex: 62 / M Date of Service: 01/31/18 Loc: ED Accession Number: [id number] Procedure: XR foot RT min 3V Ordering Provider: Nereida Langston P.A-C PROCEDURE: XR FOOT RT MIN 3V INDICATIONS: pain, previous surgery for osteomyelitis TECHNIQUE: 3 views of the foot were acquired. COMPARISON: [facility] [place], CR, XR FOOT 3+ VIEWS RIGHT, 10/05/2017, 7:31. [facility], MR, MR FOOT RT WO CON, 12/28/2017, 15:00. [facility], CR, XR FOOT RT MIN 3V, 12/20/2017, 11:12. FINDINGS: Bones: Partial resection of the distal fifth metatarsal. There is development of cortical lucency and erosion in the distal fifth metatarsal and at the base of the fifth proximal phalanx, compatible with osteomyelitis. Soft tissues: No tibiotalar joint effusion. Achilles tendon appears normal. Soft tissue swelling over the base of the fifth toe. Soft tissue calcification/ossification at the surgical site. IMPRESSION: 1. Interval development of lucency and erosion involving the distal fifth metatarsal osteotomy site and the base of the fifth proximal phalanx, consistent with osteomyelitis. Dictated by: Nikole Mora M.D. on 01/31/2018 at 14:46 Approved by: Nikole Mora M.D. on 01/31/2018 at 14:55 <Leslie Storey DO - Last Filed: 02/01/18 08:08> Lab Data Lab Results 01/31/18 01/31/18 01/31/18 Range/Units 14:27 14:27 14:27 WBC 5.5 (4.5-11.0) X10^3/uL RBC 4.95 (4.5-5.9) X10^6/uL Hgb 14.4 (13.5-17.5) g/dL Hct 43.7 (41-53) % MCV 88.3 (80-100) fL MCH 29.1 (26-34) PG MCHC 33.0 (30-36) % RDW 14.7 (11.6-14.8) % Plt Count 171 (150-400) X10^3/uL Neut % (Auto) 77.0 H (50-75) % Lymph % (Auto) 11.5 L (25-40) % [place] % (Auto) 8.7 (3-14) % Eos % (Auto) 2.3 (2-4) % Baso % (Auto) 0.5 (0-2) % Neut # (Auto) 4200 (6444-2050) /uL PT 19.3 H (10.1-12.7) SECONDS INR 1.7 H (0.9-1.3) APTT 42 H (26.4-36.2) SECONDS Lactate 0.9 (0.7-2.1) mmol/L Discharge Plan Departure Patient Disposition: Home Clinical Impression: Acute right ankle pain, Neuropathy, Osteomyelitis Discharge Date/Time: 01/31/18 16:38 Interventions: ED Discharge Assessment Last Done: 01/31/18 16:36 Instructions: Diabetic Neuropathy, DI for Osteomyelitis Activity Restrictions/Additional Instructions: The source of your foot and ankle area pain is not clear today. Your infection does not appear to be acutely worse based on your exam and lab findings. Your neuropathy could contribute to the pain as well. I have spoken with the orthopedist on-call and reviewed your x-ray findings, and he advised that it is okay for you to wait and follow up with Dr. Preciado on this tomorrow so she can take a look at it and see if these are postoperative changes that she would expect to see. It is possible that you were having some muscle spasms as well since the Valium seems to have helped today. You can continue that as needed. I have also sent in a prescription for gabapentin (Neurontin) that you were on previously for neuropathy. You can try restarting that, but remember that there is a wide variation in dosing for this medicine, so you need to work with your PCP to determine what will work best for you. You can also take her Percocet that you have at home if needed, just remember that all of these medicines can make you sleepy Prescriptions: New gabapentin 300 mg capsule 300 mg PO Q8H Qty: 30 RF: 0 No Action atorvastatin [Lipitor] 80 MG tablet 80 mg PO BEDTIME Qty: 0 RF: 0 furosemide 40 MG tablet 40 mg PO DAILY Qty: 0 RF: 0 vitamin B complex [B Complex-Vitamin B12] 1 EACH tablet 1 tab PO DAILY Qty: 0 RF: 0 carvedilol 25 mg tablet 50 mg PO BID RF: 0 gabapentin [Neurontin] 600 mg tablet 1 tab PO BEDTIME RF: 0 clonidine 0.1 mg/24 hr patch weekly 1 patch Topical QWEEK RF: 0 oxycodone-acetaminophen 5-325 mg tablet 1 tab PO Q6H PRN (Reason: pain) RF: 0 amlodipine 10 mg tablet 10 mg PO DAILY RF: 0 lisinopril 40 mg tablet 80 mg PO DAILY RF: 0 fluticasone 50 mcg/actuation spray,suspension 1 spray Intranasal DAILY RF: 0 insulin aspart U-100 [Novolog Flexpen U-100 Insulin] 100 unit/mL insulin pen 16 units subcut TIDWM RF: 0 insulin glargine [Lantus Solostar U-100 Insulin] 100 unit/mL (3 mL) insulin pen 64 units Sub-Q QAM RF: 0 warfarin 5 mg tablet 5 mg PO BEDTIME RF: 0 warfarin 1 mg tablet 1 mg PO BEDTIME RF: 0 calcium carbonate-vitamin D3 [Calcium 600 + D(3)] 600 mg calcium- 200 unit Capsule 1 cap PO DAILY RF: 0 flaxseed oil-omega 3,6,9 1,400 mg 1 cap PO DAILY RF: 0 levofloxacin [Levaquin] 750 mg tablet 750 mg PO Q48H Qty: 5 RF: 0 amoxicillin-pot clavulanate [Augmentin] 500-125 mg tablet 1 tab PO Q12H Qty: 20 RF: 0 oxycodone 5 mg Tablet 5 mg PO Q4-6H PRN (Reason: pain) RF: 0 multivitamin Tablet 1 tab PO DAILY RF: 0 omega-3 fatty acids [Fish Oil Concentrate] 1,000 mg Capsule 1,000 mg PO DAILY RF: 0 clindamycin HCl 150 mg capsule 150 mg PO Q6H PRN (Reason: unknown) RF: 0 multivitamin Capsule 1 cap PO DAILY RF: 0 Referrals: Lashon Preciado DPM [Physician] - [place] MD [Physician] - Judy Mcgrath DO [Primary Care Provider] - <Leslie Storey DO - Last Filed: 02/01/18 08:08> [facility] Att[facility]: I was immediately available in the department for consultation. Documentation has been reviewed. I agree with assessment and plan.
--- NOTE | 2018-01-31 13:14 | PC.NURSE ---
shut pts door to protect pts privacy while being assessed by provider. pt states I know you are closing the door because of my loud mouth. apologized to pt and Explained to pt we are suppposed to close pts doors to protect their privacy.
--- NOTE | 2018-01-31 13:22 | DI.RAD.S_ITS ---
PROCEDURE: XR ANKLE RT MIN 3V INDICATIONS: lateral pain, no trauma TECHNIQUE: 3 views of the ankle were acquired. COMPARISON: [facility], CR, XR FOOT RT MIN 3V, 12/20/2017, 11:12. [facility], CR, XR FOOT RT MIN 3V, 01/31/2018, 13:50. [facility], MR, MR FOOT RT WO CON, 12/28/2017, 15:00. FINDINGS: Bones: No fractures or dislocations. Ankle mortise is normally aligned. No suspicious bony lesions. There is calcaneal spurring. Possible subtle periosteal reaction over the lateral malleolus. Soft tissues: No tibiotalar joint effusion. Achilles tendon appears normal. Mild soft tissue swelling. IMPRESSION: ? Subtle periosteal reaction over the lateral malleolus. Dictated by: Nikole Mora M.D. on 01/31/2018 at 14:41 Approved by: Nikole Mora M.D. on 01/31/2018 at 14:45
--- NOTE | 2018-01-31 13:22 | DI.RAD.S_ITS ---
PROCEDURE: XR FOOT RT MIN 3V INDICATIONS: pain, previous surgery for osteomyelitis TECHNIQUE: 3 views of the foot were acquired. COMPARISON: [facility] [place], CR, XR FOOT 3+ VIEWS RIGHT, 10/05/2017, 7:31. [facility], MR, MR FOOT RT WO CON, 12/28/2017, 15:00. [facility], CR, XR FOOT RT MIN 3V, 12/20/2017, 11:12. FINDINGS: Bones: Partial resection of the distal fifth metatarsal. There is development of cortical lucency and erosion in the distal fifth metatarsal and at the base of the fifth proximal phalanx, compatible with osteomyelitis. Soft tissues: No tibiotalar joint effusion. Achilles tendon appears normal. Soft tissue swelling over the base of the fifth toe. Soft tissue calcification/ossification at the surgical site. IMPRESSION: 1. Interval development of lucency and erosion involving the distal fifth metatarsal osteotomy site and the base of the fifth proximal phalanx, consistent with osteomyelitis. Dictated by: Nikole Mora M.D. on 01/31/2018 at 14:46 Approved by: Nikole Mora M.D. on 01/31/2018 at 14:55
--- NOTE | 2018-01-31 13:33 | ED_ITS ---
HPI - Skin/Abscess/Foreign Bdy <Nereida Langston PA-C - Last Filed: 01/31/18 20:41> General Chief complaint: Skin/Abscess/Foreign Body Stated complaint: wound on right foot not healing Time Seen by Provider: 01/31/18 13:02 Source: patient and old records reviewed Mode of arrival: ambulatory Limitations: no limitations History of Present Illness HPI narrative: This 62-year-old male was directed to come in by [facility] due to increased right ankle area pain onset last night without any known trauma. He states that it was radiating into his lateral foot where he has been treated for ongoing wound infection and osteomyelitis. He states that he woke up with this after sleeping about 4 hr and his ft and ankle area were twitching. He states it is tender to touch and with putting weight on the area. He has been receiving ongoing treatment by Podiatry and Wound Care and is on antibiotics. He still has some drainage from his wound but no change overnight. He has not had any increased redness or new swelling. He has not had any new fever. He states that he tried Percocet that he had at home for pain as well as some THC cream neither of which helped. States that this feels different than his previous neuropathy pain. He denies any other new complaints on systems review Related Data Home Medications Medication Instructions Recorded Confirmed atorvastatin [Lipitor] 80 mg PO BEDTIME #0 02/07/11 01/31/18 furosemide 40 mg PO DAILY #0 02/06/16 01/31/18 vitamin B complex [B 1 tab PO DAILY #0 07/27/16 01/31/18 Complex-Vitamin B12] amlodipine 10 mg PO DAILY 09/07/17 01/31/18 carvedilol 50 mg PO BID 09/07/17 01/31/18 clonidine 1 patch TOPICAL QWEEK 09/07/17 01/31/18 fluticasone 1 spray INTRANASAL DAILY 09/07/17 01/31/18 gabapentin [Neurontin] 1 tab PO BEDTIME 09/07/17 01/31/18 insulin aspart U-100 [Novolog 16 units SUBCUT TIDWM 09/07/17 01/31/18 Flexpen U-100 Insulin] insulin glargine [Lantus Solostar 64 units SUB-Q QAM 09/07/17 01/31/18 U-100 Insulin] lisinopril 80 mg PO DAILY 09/07/17 01/31/18 oxycodone-acetaminophen 1 tab PO Q6H PRN 09/07/17 01/31/18 calcium carbonate-vitamin D3 1 cap PO DAILY 12/24/17 01/31/18 [Calcium 600 + D(3)] flaxseed oil-omega 3,6,9 1 cap PO DAILY 12/24/17 01/31/18 warfarin 1 mg PO BEDTIME 12/24/17 01/31/18 warfarin 5 mg PO BEDTIME 12/24/17 01/31/18 clindamycin HCl 150 mg PO Q6H PRN 01/31/18 01/31/18 multivitamin 1 cap PO DAILY 01/31/18 01/31/18 multivitamin 1 tab PO DAILY 01/31/18 01/31/18 omega-3 fatty acids [Fish Oil 1,000 mg PO DAILY 01/31/18 01/31/18 Concentrate] oxycodone 5 mg PO Q4-6H PRN 01/31/18 01/31/18 Previous Rx's Medication Instructions Recorded amoxicillin-pot clavulanate 1 tab PO Q12H #20 tab 12/24/17 [Augmentin] levofloxacin [Levaquin] 750 mg PO Q48H #5 tab 12/24/17 gabapentin 300 mg PO Q8H #30 cap 01/31/18 Allergies Allergy/AdvReac Type Severity Reaction Status Date / Time No Known Allergies Allergy Verified 12/31/17 13:14 Review of Systems <Nereida Langston PA-C - Last Filed: 01/31/18 20:41> Review of Systems All systems reviewed & are unremarkable except as noted in HPI and below Exam <Nereida Langston PA-C - Last Filed: 01/31/18 20:41> Narrative Exam Narrative: GENERAL APPEARANCE: Patient sitting comfortably, in no distress. NECK/THYROID: Neck supple LUNGS: Clear to auscultation bilaterally. HEART: Regular rate and rhythm without murmur, normal S1, S2, no S3 or S4. EXTREMITIES: No cyanosis, mild edema. No calf tenderness on the right NEUROLOGIC: Alert and oriented, normal speech, and coordination. DERM: Right foot at the 5th metatarsal base there is a chronic appearing partially closed wound approximately 1 cm in length 5 mm in depth, not actively draining. The skin is a little bit dusky but there is no erythema surrounding. There is minimal tenderness around the wound and surrounding skin. There is a tiny 1 mm black flat eschar on the medial great toe with normal skin surrounding MS: TTP R. anterior lateral ankle to the base of the 5th metatarsal. Normal range of motion of the ankle nonweightbearing. Initial Vital Signs Initial Vital Signs: Vital Signs Temperature 98.5 F 01/31/18 12:05 Pulse Rate 68 01/31/18 12:05 Respiratory Rate 16 01/31/18 12:05 Blood Pressure 122/77 01/31/18 12:05 Pulse Oximetry 98 01/31/18 12:05 <Leslie Storey DO - Last Filed: 02/01/18 08:08> Initial Vital Signs Initial Vital Signs: Vital Signs Temperature 98.5 F 01/31/18 12:05 Pulse Rate 68 01/31/18 12:05 Respiratory Rate 16 01/31/18 12:05 Blood Pressure 122/77 01/31/18 12:05 Pulse Oximetry 98 01/31/18 12:05 Course <Nereida Langston PA-C - Last Filed: 01/31/18 20:41> Additional Information: Patient reported improvement in pain after Valium, was able to fall asleep which he was not able last night. Discussed that muscle spasm could contribute to his pain. He has also been off of gabapentin for 2 or 3 weeks and does have a history of neuropathy. His wound appears greatly improved from when I saw him last month, no evidence of acute cellulitis on exam or on lab work. I reviewed x-ray findings with Dr. Nick insulation estimator for Orthopedics as Dr. Preciado is off today, and he advised that this can wait until follow-up with Dr. Preciado to review tomorrow, did not think further imaging needed today. Orders Ordered: Discontinued Medications Albuterol (Ventolin) 2.5 mg INH NOW ONE Stop: 01/31/18 15:25 Last Admin: 01/31/18 16:07 Dose: Diazepam (Valium) 5 mg PO NOW ONE Stop: 01/31/18 13:23 Last Admin: 01/31/18 13:35 Dose: 5 mg Vital Signs - 8 hr 01/31/18 13:42 01/31/18 16:36 Pulse Rate 67 62 Respiratory Rate 19 20 Blood Pressure 142/61 H Blood Pressure [Right Arm] 129/73 Pulse Oximetry 99 98 <Leslie Storey DO - Last Filed: 02/01/18 08:08> Orders Ordered: Discontinued Medications Albuterol (Ventolin) 2.5 mg INH NOW ONE Stop: 01/31/18 15:25 Last Admin: 01/31/18 16:07 Dose: Diazepam (Valium) 5 mg PO NOW ONE Stop: 01/31/18 13:23 Last Admin: 01/31/18 13:35 Dose: 5 mg Vital Signs - 8 hr 01/31/18 13:42 01/31/18 16:36 Pulse Rate 67 62 Respiratory Rate 19 20 Blood Pressure 142/61 H Blood Pressure [Right Arm] 129/73 Pulse Oximetry 99 98 MDM - Skin/Abscess/Foreign Bdy <Nereida Langston PA-C - Last Filed: 01/31/18 20:41> Lab Data Result diagrams: 01/31/18 14:27 Lab Results 01/31/18 01/31/18 01/31/18 Range/Units 14:27 14:27 14:27 WBC 5.5 (4.5-11.0) X10^3/uL RBC 4.95 (4.5-5.9) X10^6/uL Hgb 14.4 (13.5-17.5) g/dL Hct 43.7 (41-53) % MCV 88.3 (80-100) fL MCH 29.1 (26-34) PG MCHC 33.0 (30-36) % RDW 14.7 (11.6-14.8) % Plt Count 171 (150-400) X10^3/uL Neut % (Auto) 77.0 H (50-75) % Lymph % (Auto) 11.5 L (25-40) % [place] % (Auto) 8.7 (3-14) % Eos % (Auto) 2.3 (2-4) % Baso % (Auto) 0.5 (0-2) % Neut # (Auto) 4200 (3072-7648) /uL PT 19.3 H (10.1-12.7) SECONDS INR 1.7 H (0.9-1.3) APTT 42 H (26.4-36.2) SECONDS Lactate 0.9 (0.7-2.1) mmol/L Imaging Data ankle: Radiologist's impression: View Report History [address] [address] XRay Report Signed Patient: Hardeep Will MR#: [id number] : 1955 Acct:[id number] Age/Sex: 62 / M Date of Service: 01/31/18 Loc: ED Accession Number: [id number] Procedure: XR ankle RT min 3V Ordering Provider: Nereida Langston P.A-C PROCEDURE: XR ANKLE RT MIN 3V INDICATIONS: lateral pain, no trauma TECHNIQUE: 3 views of the ankle were acquired. COMPARISON: [facility], CR, XR FOOT RT MIN 3V, 12/20/2017, 11:12. [facility], CR, XR FOOT RT MIN 3V, 01/31/2018, 13:50. [facility], , MR FOOT RT WO CON, 12/28/2017, 15:00. FINDINGS: Bones: No fractures or dislocations. Ankle mortise is normally aligned. No suspicious bony lesions. There is calcaneal spurring. Possible subtle periosteal reaction over the lateral malleolus. Soft tissues: No tibiotalar joint effusion. Achilles tendon appears normal. Mild soft tissue swelling. IMPRESSION: ? Subtle periosteal reaction over the lateral malleolus. Dictated by: Nikole Mora M.D. on 01/31/2018 at 14:41 Approved by: Nikole Mora M.D. on 01/31/2018 at 14:45 foot: Radiologist's impression: View Report History [address] [address] XRay Report Signed Patient: Hardeep Will MR#: [id number] : 1955 Acct:[id number] Age/Sex: 62 / M Date of Service: 01/31/18 Loc: ED Accession Number: [id number] Procedure: XR foot RT min 3V Ordering Provider: Nereida Langston P.A-C PROCEDURE: XR FOOT RT MIN 3V INDICATIONS: pain, previous surgery for osteomyelitis TECHNIQUE: 3 views of the foot were acquired. COMPARISON: [facility], CR, XR FOOT 3+ VIEWS RIGHT, 10/05/2017, 7:31. [facility], MR, MR FOOT RT WO CON, 12/28/2017, 15:00. [facility], CR, XR FOOT RT MIN 3V, 12/20/2017, 11:12. FINDINGS: Bones: Partial resection of the distal fifth metatarsal. There is development of cortical lucency and erosion in the distal fifth metatarsal and at the base of the fifth proximal phalanx, compatible with osteomyelitis. Soft tissues: No tibiotalar joint effusion. Achilles tendon appears normal. Soft tissue swelling over the base of the fifth toe. Soft tissue calcification/ ossification at the surgical site. IMPRESSION: 1. Interval development of lucency and erosion involving the distal fifth metatarsal osteotomy site and the base of the fifth proximal phalanx, consistent with osteomyelitis. Dictated by: Nikole Mora M.D. on 01/31/2018 at 14:46 Approved by: Nikole Mora M.D. on 01/31/2018 at 14:55 <Leslie Storey DO - Last Filed: 02/01/18 08:08> Lab Data Lab Results 01/31/18 01/31/18 01/31/18 Range/Units 14:27 14:27 14:27 WBC 5.5 (4.5-11.0) X10^3/uL RBC 4.95 (4.5-5.9) X10^6/uL Hgb 14.4 (13.5-17.5) g/dL Hct 43.7 (41-53) % MCV 88.3 (80-100) fL MCH 29.1 (26-34) PG MCHC 33.0 (30-36) % RDW 14.7 (11.6-14.8) % Plt Count 171 (150-400) X10^3/uL Neut % (Auto) 77.0 H (50-75) % Lymph % (Auto) 11.5 L (25-40) % [place] % (Auto) 8.7 (3-14) % Eos % (Auto) 2.3 (2-4) % Baso % (Auto) 0.5 (0-2) % Neut # (Auto) 4200 (4338-5915) /uL PT 19.3 H (10.1-12.7) SECONDS INR 1.7 H (0.9-1.3) APTT 42 H (26.4-36.2) SECONDS Lactate 0.9 (0.7-2.1) mmol/L Discharge Plan Departure Patient Disposition: Home Clinical Impression: Acute right ankle pain, Neuropathy, Osteomyelitis Discharge Date/Time: 01/31/18 16:38 Interventions: ED Discharge Assessment Last Done: 01/31/18 16:36 Instructions: Diabetic Neuropathy, DI for Osteomyelitis Activity Restrictions/Additional Instructions: The source of your foot and ankle area pain is not clear today. Your infection does not appear to be acutely worse based on your exam and lab findings. Your neuropathy could contribute to the pain as well. I have spoken with the orthopedist on-call and reviewed your x-ray findings, and he advised that it is okay for you to wait and follow up with Dr. Preciado on this tomorrow so she can take a look at it and see if these are postoperative changes that she would expect to see. It is possible that you were having some muscle spasms as well since the Valium seems to have helped today. You can continue that as needed. I have also sent in a prescription for gabapentin (Neurontin) that you were on previously for neuropathy. You can try restarting that, but remember that there is a wide variation in dosing for this medicine, so you need to work with your PCP to determine what will work best for you. You can also take her Percocet that you have at home if needed, just remember that all of these medicines can make you sleepy Prescriptions: New gabapentin 300 mg capsule 300 mg PO Q8H Qty: 30 RF: 0 No Action atorvastatin [Lipitor] 80 MG tablet 80 mg PO BEDTIME Qty: 0 RF: 0 furosemide 40 MG tablet 40 mg PO DAILY Qty: 0 RF: 0 vitamin B complex [B Complex-Vitamin B12] 1 EACH tablet 1 tab PO DAILY Qty: 0 RF: 0 carvedilol 25 mg tablet 50 mg PO BID RF: 0 gabapentin [Neurontin] 600 mg tablet 1 tab PO BEDTIME RF: 0 clonidine 0.1 mg/24 hr patch weekly 1 patch Topical QWEEK RF: 0 oxycodone-acetaminophen 5-325 mg tablet 1 tab PO Q6H PRN (Reason: pain) RF: 0 amlodipine 10 mg tablet 10 mg PO DAILY RF: 0 lisinopril 40 mg tablet 80 mg PO DAILY RF: 0 fluticasone 50 mcg/actuation spray,suspension 1 spray Intranasal DAILY RF: 0 insulin aspart U-100 [Novolog Flexpen U-100 Insulin] 100 unit/mL insulin pen 16 units subcut TIDWM RF: 0 insulin glargine [Lantus Solostar U-100 Insulin] 100 unit/mL (3 mL) insulin pen 64 units Sub-Q QAM RF: 0 warfarin 5 mg tablet 5 mg PO BEDTIME RF: 0 warfarin 1 mg tablet 1 mg PO BEDTIME RF: 0 calcium carbonate-vitamin D3 [Calcium 600 + D(3)] 600 mg calcium- 200 unit Capsule 1 cap PO DAILY RF: 0 flaxseed oil-omega 3,6,9 1,400 mg 1 cap PO DAILY RF: 0 levofloxacin [Levaquin] 750 mg tablet 750 mg PO Q48H Qty: 5 RF: 0 amoxicillin-pot clavulanate [Augmentin] 500-125 mg tablet 1 tab PO Q12H Qty: 20 RF: 0 oxycodone 5 mg Tablet 5 mg PO Q4-6H PRN (Reason: pain) RF: 0 multivitamin Tablet 1 tab PO DAILY RF: 0 omega-3 fatty acids [Fish Oil Concentrate] 1,000 mg Capsule 1,000 mg PO DAILY RF: 0 clindamycin HCl 150 mg capsule 150 mg PO Q6H PRN (Reason: unknown) RF: 0 multivitamin Capsule 1 cap PO DAILY RF: 0 Referrals: Lashon Prceiado DPM [Physician] - Quoc Hi MD [Physician] - Judy Mcgrath DO [Primary Care Provider] - <Leslie Storey DO - Last Filed: 02/01/18 08:08> [facility]jeet Attestation: I was immediately available in the department for consultation. Documentation has been reviewed. I agree with assessment and plan.
[2018-01-31] MEDS: diazePAM 5 MG TABLET PO (13:35)
[2018-01-31 13:42] VITALS: BP 129/73; PULSE 67; RESP 19; O2SAT 99
[2018-01-31 14:48] LABS: INR 1.7 (0.9-1.3); Prothrombin Time 19.3 SECONDS (10.1-12.7)
[2018-01-31 14:49] LABS: Lactate (Lactic Acid) 0.9 mmol/L (0.7-2.1)
[2018-01-31 14:51] LABS: PTT Partial Thromboplastin Tim 42 SECONDS (26.4-36.2)
[2018-01-31 14:52] LABS: Add Manual Diff / Slide Review NO; Basophils Percent Auto 0.5 % (0-2); Eosinophils Percent Auto 2.3 % (2-4); Hematocrit 43.7 % (41-53); Hemoglobin 14.4 g/dL (13.5-17.5); Lymphocytes Percent Auto 11.5 % (25-40); Mean Corpuscular Hemoglobin 29.1 PG (26-34); Mean Corpuscular Volume 88.3 fL (80-100); Monocytes Percent Auto 8.7 % (3-14); Neutrophils Absolute Auto 4200 /uL (1500-7000); Platelet Count 171 X10^3/uL (150-400); Red Blood Cell Count 4.95 X10^6/uL (4.5-5.9); Red Cell Distribution Width 14.7 % (11.6-14.8); White Blood Cell Count 5.5 X10^3/uL (4.5-11.0)
--- NOTE | 2018-01-31 16:35 | PC.NURSE ---
dressed pts right foot wound with non-stick telfa and gauze. pt appears in no acute distress at this time. Pt tried to give me a hug to thank me for taking car of him. I politely told the patient I appreciate him taking the time to thank me but I would prefer not to have hug. Pt apologized, and I told him it was a pleasure taking care of him.
[2018-01-31 16:36] VITALS: BP 142/61; PULSE 62; RESP 20; O2SAT 98
== END 2018-01-31 16:38 | disposition home or self-care (01) ==
PROVIDERS: Emergency Provider Internal Medicine; PCP Family Medicine
DX: M25.571 Pain in right ankle and joints of right foot (principal); G62.9 Polyneuropathy, unspecified; M86.9 Osteomyelitis, unspecified
CPT/HCPCS: 73610; 73630; 83605; 85025; 85610; 85730; 99282; 99284

== ENCOUNTER → 2018-02-04 09:03 | Outpatient (CLI) | payer MEDICARE, OTHER, SELFPAY | PROVIDERS: PCP Family Medicine; Visit Provider Family Medicine | DX: E11.621 Type 2 diabetes mellitus with foot ulcer (principal); L97.511 Non-pressure chronic ulcer of other part of right foot limited to breakdown of skin; E11.622 Type 2 diabetes mellitus with other skin ulcer; L97.311 Non-pressure chronic ulcer of right ankle limited to breakdown of skin | CPT/HCPCS: 11042; 93922 ==

== ENCOUNTER → 2018-02-04 09:50 | Outpatient (CLI) | payer MEDICARE, OTHER, SELFPAY ==
[2018-02-04 11:32] LABS: Hemoglobin A1C% w Est Avg Glu 6.8 % (4.0-6.0)
[2018-02-04 11:37] LABS: Erythrocyte Sedimentation Rate 8 MM/HR (0-15)
[2018-02-04 11:42] LABS: C-Reactive Protein Quant < 0.5 mg/dL (<1.0); Prealbumin 35.5 mg/dL (17.6-36.0)
== END ==
PROVIDERS: PCP Family Medicine; Visit Provider Family Medicine
DX: E11.621 Type 2 diabetes mellitus with foot ulcer (principal); L03.115 Cellulitis of right lower limb
CPT/HCPCS: 36415; 83036; 84134; 85651; 86140

== ENCOUNTER → 2018-02-18 08:30 | Outpatient (CLI) | payer MEDICARE, OTHER, SELFPAY | PROVIDERS: PCP Family Medicine; Visit Provider Family Medicine | DX: E11.621 Type 2 diabetes mellitus with foot ulcer (principal); L97.511 Non-pressure chronic ulcer of other part of right foot limited to breakdown of skin; L02.611 Cutaneous abscess of right foot | CPT/HCPCS: 11042; 71046 ==

== ENCOUNTER → 2018-02-18 10:15 | Outpatient (CLI) | payer MEDICARE, OTHER, SELFPAY ==
--- NOTE | 2018-02-18 | DI.RAD.S_ITS ---
PROCEDURE: XR CHEST 2V INDICATIONS: UNK TECHNIQUE: 2 views of the chest were acquired. COMPARISON: [facility], , CHEST 1 VIEW, 03/18/2016, 9:08. FINDINGS: Surgical changes and devices: None. Lungs and pleura: No pleural effusions or pneumothorax. Mild pulmonary vascular congestion is seen. No focal infiltrate. Mediastinum: Mediastinal contours are normal. Heart size is enlarged. Bones and chest wall: No suspicious bony abnormalities. Soft tissues appear unremarkable. IMPRESSION: Mild congestion. No focal infiltrate, pleural effusion or pneumothorax. Dictated by: Danis Monroe M.D. on 02/18/2018 at 11:37 Approved by: Danis Monroe M.D. on 02/18/2018 at 11:38
== END ==
PROVIDERS: PCP Family Medicine; Visit Provider Family Medicine
DX: R09.89 Other specified symptoms and signs involving the circulatory and respiratory systems (principal); Z72.0 Tobacco use
CPT/HCPCS: 71046

== ENCOUNTER → 2018-02-25 08:43 | Outpatient (CLI) | payer MEDICARE, OTHER, SELFPAY | PROVIDERS: PCP Family Medicine; Visit Provider Family Medicine | DX: E11.621 Type 2 diabetes mellitus with foot ulcer (principal); L97.511 Non-pressure chronic ulcer of other part of right foot limited to breakdown of skin; L02.611 Cutaneous abscess of right foot | CPT/HCPCS: 99213 ==

== ENCOUNTER → 2018-03-04 08:32 | Outpatient (CLI) | payer MEDICARE, OTHER, SELFPAY | PROVIDERS: PCP Family Medicine; Visit Provider Family Medicine | DX: E11.621 Type 2 diabetes mellitus with foot ulcer (principal); L97.511 Non-pressure chronic ulcer of other part of right foot limited to breakdown of skin | CPT/HCPCS: 99213 ==

== ENCOUNTER → 2018-03-11 06:55 | Outpatient (CLI) | payer MEDICARE, OTHER, SELFPAY ==
[2018-03-11 07:28] LABS: Add Manual Diff / Slide Review NO; Basophils Absolute Auto 0 /uL (0-100); Basophils Percent Auto 0.9 % (0-2); Eosinophils Absolute Auto 100 /uL (0-450); Eosinophils Percent Auto 2.2 % (2-4); Hematocrit 42.6 % (41-53); Hemoglobin 14.5 g/dL (13.5-17.5); Lymphocytes Absolute Auto 600 /uL (1100-4500); Lymphocytes Percent Auto 11.1 % (25-40); Mean Corpuscular HGB Conc 34.1 % (30-36); Mean Corpuscular Hemoglobin 29.6 PG (26-34); Mean Corpuscular Volume 86.8 fL (80-100); Monocytes Absolute Auto 400 /uL (0-900); Monocytes Percent Auto 7.8 % (3-14); Neutrophils Absolute Auto 4300 /uL (1500-7000); Platelet Count 148 X10^3/uL (150-400); Red Blood Cell Count 4.91 X10^6/uL (4.5-5.9); Red Cell Distribution Width 14.5 % (11.6-14.8); White Blood Cell Count 5.6 X10^3/uL (4.5-11.0)
[2018-03-11 07:38] LABS: Prothrombin Time 22.8 SECONDS (10.1-12.7)
[2018-03-11 07:43] LABS: BUN Creatinine Ratio 23.5 (6-22); Blood Urea Nitrogen 47 mg/dL (9-20); Calcium 9.3 mg/dL (8.4-10.2); Carbon Dioxide 25 mmol/L (22-32); Chloride 105 mmol/L (98-107); Cholesterol 140 mg/dL (140-199); Estimated Glomerular Filt Rate 34.3 mL/min (>60); Glucose 208 mg/dL (80-110); HDL Cholesterol 23 mg/dL (40-60); HEMOLYSIS < 15 (0-50); LDL Cholesterol Calculated 42 mg/dL (<100); Potassium 4.6 mmol/L (3.4-5.1); Sodium 140 mmol/L (137-145); Triglycerides 376 mg/dL (35-150)
== END ==
PROVIDERS: Family Provider Family Medicine; PCP Family Medicine; Visit Provider Internal Medicine Cardiovascular Disease
DX: I48.91 Unspecified atrial fibrillation (principal); I10 Essential (primary) hypertension
CPT/HCPCS: 36415; 80048; 80061; 85025; 85610

== ENCOUNTER 2018-03-27 13:34 | Emergency (ER) | payer MEDICARE, OTHER, SELFPAY ==
--- NOTE | 2018-03-27 13:40 | DI.RAD.S_ITS ---
PROCEDURE: XR FOOT RT MIN 3V INDICATIONS: possible glass in right foot TECHNIQUE: 3 views of the foot were acquired. COMPARISON: [facility], CR, XR FOOT RT MIN 3V, 01/31/2018, 13:50. FINDINGS: Bones: No fractures or dislocations. No suspicious bony lesions. Chronic deformity and absence of the distal fifth metatarsal. Mild first MTP joint degeneration. Large plantar calcaneal spur Soft tissues: No tibiotalar joint effusion. Achilles tendon appears normal. IMPRESSION: No radiopaque foreign body seen. Dictated by: Jacob Morales M.D. on 03/27/2018 at 14:24 Approved by: Jacob Morales M.D. on 03/27/2018 at 14:26
[2018-03-27 13:42] VITALS: BP 163/93; PULSE 86; RESP 18; TEMP 36.7; O2SAT 97
--- NOTE | 2018-03-27 13:49 | ED.WOUNDLAC ---
HPI - Wound/Laceration <Nereida Langston PA-C - Last Filed: 03/27/18 16:29> General Chief Complaint: Wound/Laceration Stated Complaint: STEPPED ON GLASS,RT FOOT Time Seen by Provider: 03/27/18 13:40 Source: patient Mode of arrival: ambulatory Limitations: no limitations History of Present Illness HPI narrative: this 62-year-old male diabetic comes in due to bleeding and a cut on the right foot between the great and 2nd toes today. He has neuropathy, and he and his are concerned that he may have gotten a piece of glass in the foot, causing the cut. They broke a pickle jar at home, and thought the glass was cleaned up, but they did not know of any other injury so came to have this checked. Related Data Home Medications Medication Instructions Recorded Confirmed atorvastatin [Lipitor] 80 mg PO BEDTIME #0 02/07/11 01/31/18 furosemide 40 mg PO DAILY #0 02/06/16 01/31/18 vitamin B complex [B 1 tab PO DAILY #0 07/27/16 01/31/18 Complex-Vitamin B12] amlodipine 10 mg PO DAILY 09/07/17 01/31/18 carvedilol 50 mg PO BID 09/07/17 01/31/18 clonidine 1 patch TOPICAL QWEEK 09/07/17 01/31/18 fluticasone 1 spray INTRANASAL DAILY 09/07/17 01/31/18 gabapentin [Neurontin] 1 tab PO BEDTIME 09/07/17 01/31/18 insulin aspart U-100 [Novolog 16 units SUBCUT TIDWM 09/07/17 01/31/18 Flexpen U-100 Insulin] insulin glargine [Lantus Solostar 64 units SUB-Q QAM 09/07/17 01/31/18 U-100 Insulin] lisinopril 80 mg PO DAILY 09/07/17 01/31/18 oxycodone-acetaminophen 1 tab PO Q6H PRN 09/07/17 01/31/18 calcium carbonate-vitamin D3 1 cap PO DAILY 12/24/17 01/31/18 [Calcium 600 + D(3)] flaxseed oil-omega 3,6,9 1 cap PO DAILY 12/24/17 01/31/18 warfarin 1 mg PO BEDTIME 12/24/17 01/31/18 warfarin 5 mg PO BEDTIME 12/24/17 01/31/18 clindamycin HCl 150 mg PO Q6H PRN 01/31/18 01/31/18 multivitamin 1 cap PO DAILY 01/31/18 01/31/18 multivitamin 1 tab PO DAILY 01/31/18 01/31/18 omega-3 fatty acids [Fish Oil 1,000 mg PO DAILY 01/31/18 01/31/18 Concentrate] oxycodone 5 mg PO Q4-6H PRN 01/31/18 01/31/18 Previous Rx's Medication Instructions Recorded amoxicillin-pot clavulanate 1 tab PO Q12H #20 tab 12/24/17 [Augmentin] levofloxacin [Levaquin] 750 mg PO Q48H #5 tab 12/24/17 gabapentin 300 mg PO Q8H #30 cap 01/31/18 Allergies Allergy/AdvReac Type Severity Reaction Status Date / Time No Known Allergies Allergy Verified 12/31/17 13:14 Review of Systems <Nereida Langston PA-C - Last Filed: 03/27/18 16:29> Review of Systems ROS Unobtainable: All systems reviewed & are unremarkable except as noted in HPI and below PFSH <Nereida Langston PA-C - Last Filed: 03/27/18 16:29> Medical History History of pneumonia (Acute ~12/2014) History of sinusitis (Acute) Sleep apnea treated with nocturnal BiPAP (Acute) V-tach (Acute) BMI 40.0-44.9, adult (Chronic) Bilateral lower extremity edema (Chronic) Blind left eye (Chronic) Chronic anticoagulation (Chronic) Chronic renal insufficiency (Chronic) Diabetic neuropathy (Chronic) EKG abnormalities (Chronic ~10/22/17) History of echocardiogram (Chronic ~11/18/17) Hyperlipidemia (Chronic) Left foot infection (Chronic) PVC (premature ventricular contraction) (Chronic) Restless leg syndrome (Chronic) Right foot ulcer (Chronic) Stage 4 chronic kidney disease (Chronic) Type 2 diabetes mellitus with complication, with long-term current use of insulin (Chronic) Surgical History History of rhinoplasty (Acute) History of tonsillectomy (Acute) History of uvulopalatopharyngoplasty (Acute) History of vasectomy (Acute) History of amputation (Chronic) S/P right unicompartmental knee replacement (Chronic) Social History household members: spouse Smoking Status: Former smoker alcohol intake: current Social History household members: spouse Smoking Status: Former smoker alcohol intake: current Exam <Nereida Langston PA-C - Last Filed: 03/27/18 16:29> Narrative Exam Narrative: GENERAL APPEARANCE: Patient sitting comfortably, in no distress. LUNGS: Clear to auscultation bilaterally. HEART: Rate and rhythm regular without murmur, normal S1 and S2, no S3 or S4. DERMATOLOGIC: Right 1/2 interdigital space on the toe there is a shallow 6 mm laceration that is not actively bleeding, no gap, no foreign body or surrounding skin abnormality visible. MS: No R. foot effusion Initial Vital Signs Initial Vital Signs: Vital Signs Temperature 98.1 F 03/27/18 13:42 Pulse Rate 86 03/27/18 13:42 Respiratory Rate 18 03/27/18 13:42 Blood Pressure 163/93 H 03/27/18 13:42 Pulse Oximetry 97 03/27/18 13:42 <DO Julita Morris Last Filed: 03/27/18 19:21> Initial Vital Signs Initial Vital Signs: Vital Signs Temperature 98.1 F 03/27/18 13:42 Pulse Rate 86 03/27/18 13:42 Respiratory Rate 18 03/27/18 13:42 Blood Pressure 163/93 H 03/27/18 13:42 Pulse Oximetry 97 03/27/18 13:42 Course <Nereida Langston PA-C - Last Filed: 03/27/18 16:29> Orders Ordered: ED Orders 03/27/18 13:40 XR foot RT min 3V Stat Vital Signs - 8 hr 03/27/18 13:42 Temperature 98.1 F Pulse Rate 86 Respiratory Rate 18 Blood Pressure 163/93 H Pulse Oximetry 97 <DO Julita Morris Last Filed: 03/27/18 19:21> Orders Ordered: ED Orders 03/27/18 13:40 XR foot RT min 3V Stat Vital Signs - 8 hr 03/27/18 13:42 Temperature 98.1 F Pulse Rate 86 Respiratory Rate 18 Blood Pressure 163/93 H Pulse Oximetry 97 Discharge Plan Departure Patient Disposition: Home Clinical Impression: Laceration of foot, right Qualifiers: Encounter type: initial encounter Qualified Code(s): S91.311A - Laceration without foreign body, right foot, initial encounter Discharge Date/Time: 03/27/18 15:10 Interventions: ED Discharge Assessment Last Done: 03/27/18 15:10 Instructions: DI for Minor Laceration Activity Restrictions/Additional Instructions: There was no sign of glass or a foreign body between your toes today. There is a small laceration there that does not appear to need repair. it does not appear infected. Please keep it clean and dry with a dressing, and avoid pressure on the area. Monitor for signs of infection as it heals, and please see your PCP right away if any concerns Prescriptions: No Action atorvastatin [Lipitor] 80 MG tablet 80 mg PO BEDTIME Qty: 0 RF: 0 furosemide 40 MG tablet 40 mg PO DAILY Qty: 0 RF: 0 vitamin B complex [B Complex-Vitamin B12] 1 EACH tablet 1 tab PO DAILY Qty: 0 RF: 0 carvedilol 25 mg tablet 50 mg PO BID RF: 0 gabapentin [Neurontin] 600 mg tablet 1 tab PO BEDTIME RF: 0 clonidine 0.1 mg/24 hr patch weekly 1 patch Topical QWEEK RF: 0 oxycodone-acetaminophen 5-325 mg tablet 1 tab PO Q6H PRN (Reason: pain) RF: 0 amlodipine 10 mg tablet 10 mg PO DAILY RF: 0 lisinopril 40 mg tablet 80 mg PO DAILY RF: 0 fluticasone 50 mcg/actuation spray,suspension 1 spray Intranasal DAILY RF: 0 insulin aspart U-100 [Novolog Flexpen U-100 Insulin] 100 unit/mL insulin pen 16 units subcut TIDWM RF: 0 insulin glargine [Lantus Solostar U-100 Insulin] 100 unit/mL (3 mL) insulin pen 64 units Sub-Q QAM RF: 0 warfarin 5 mg tablet 5 mg PO BEDTIME RF: 0 warfarin 1 mg tablet 1 mg PO BEDTIME RF: 0 calcium carbonate-vitamin D3 [Calcium 600 + D(3)] 600 mg calcium- 200 unit Capsule 1 cap PO DAILY RF: 0 flaxseed oil-omega 3,6,9 1,400 mg 1 cap PO DAILY RF: 0 levofloxacin [Levaquin] 750 mg tablet 750 mg PO Q48H Qty: 5 RF: 0 amoxicillin-pot clavulanate [Augmentin] 500-125 mg tablet 1 tab PO Q12H Qty: 20 RF: 0 oxycodone 5 mg Tablet 5 mg PO Q4-6H PRN (Reason: pain) RF: 0 multivitamin Tablet 1 tab PO DAILY RF: 0 omega-3 fatty acids [Fish Oil Concentrate] 1,000 mg Capsule 1,000 mg PO DAILY RF: 0 clindamycin HCl 150 mg capsule 150 mg PO Q6H PRN (Reason: unknown) RF: 0 multivitamin Capsule 1 cap PO DAILY RF: 0 gabapentin 300 mg capsule 300 mg PO Q8H Qty: 30 RF: 0 Referrals: Judy Mcgrath DO [Primary Care Provider] - <Demi Cotton DO - Last Filed: 03/27/18 19:21> [facility] ED Attending Cosignature Attestation: I was immediately available in the department for consultation. This documentation has been reviewed and I agree with assessment and plan. Supervised by Demi Cotton DO
== END 2018-03-27 15:10 | disposition home or self-care (01) ==
PROVIDERS: Emergency Provider Internal Medicine; Family Provider Family Medicine; PCP Family Medicine
DX: S91.311A Laceration without foreign body, right foot, initial encounter (principal); W26.8XXA Contact with other sharp object(s), not elsewhere classified, initial encounter
CPT/HCPCS: 73630; 99283

== ENCOUNTER → 2018-05-17 12:37 | Outpatient (CLI) | payer MEDICARE, OTHER, SELFPAY ==
[2018-05-17 21:42] LABS: INR 1.6 (0.9-1.3); Prothrombin Time 18.4 SECONDS (10.1-12.7)
== END ==
PROVIDERS: Family Provider Family Medicine; PCP Family Medicine; Visit Provider Family Medicine
DX: I48.91 Unspecified atrial fibrillation (principal)
CPT/HCPCS: 36415; 85610

== ENCOUNTER → 2018-07-12 07:53 | Outpatient (CLI) | payer MEDICARE, OTHER, SELFPAY ==
[2018-07-12 08:26] LABS: INR 3.5 (0.9-1.3); Prothrombin Time 41.4 SECONDS (10.1-12.7)
== END ==
PROVIDERS: Family Provider Family Medicine; PCP Family Medicine; Visit Provider Family Medicine
DX: I48.1 Persistent atrial fibrillation (principal)
CPT/HCPCS: 36415; 85610

== ENCOUNTER → 2018-07-21 14:22 | Outpatient (CLI) | payer MEDICARE, OTHER, SELFPAY ==
[2018-07-21 14:57] LABS: INR 2.8 (0.9-1.3); Prothrombin Time 33.5 SECONDS (10.1-12.7)
[2018-07-21 14:58] LABS: Add Manual Diff / Slide Review NO; Basophils Absolute Auto 0 /uL (0-100); Basophils Percent Auto 0.6 % (0-2); Eosinophils Absolute Auto 100 /uL (0-450); Eosinophils Percent Auto 2.5 % (2-4); Hematocrit 40.1 % (41-53); Hemoglobin 13.6 g/dL (13.5-17.5); Lymphocytes Absolute Auto 500 /uL (1100-4500); Mean Corpuscular Hemoglobin 29.1 PG (26-34); Mean Corpuscular Volume 85.6 fL (80-100); Monocytes Absolute Auto 500 /uL (0-900); Monocytes Percent Auto 8.2 % (3-14); Neutrophils Absolute Auto 4700 /uL (1500-7000); Neutrophils Percent Auto 79.7 % (50-75); Platelet Count 157 X10^3/uL (150-400); Red Blood Cell Count 4.68 X10^6/uL (4.5-5.9); Red Cell Distribution Width 15.2 % (11.6-14.8); White Blood Cell Count 5.9 X10^3/uL (4.5-11.0)
[2018-07-21 15:31] LABS: Albumin 3.7 g/dL (3.5-5.0); BUN Creatinine Ratio 22.6 (6-22); Blood Urea Nitrogen 52 mg/dL (9-20); Calcium 9.2 mg/dL (8.4-10.2); Carbon Dioxide 21 mmol/L (22-32); Chloride 113 mmol/L (98-107); Estimated Glomerular Filt Rate 29.2 mL/min (>60); Glucose 138 mg/dL (80-110); HEMOLYSIS < 15 (0-50); Phosphorous 4.4 mg/dL (2.3-3.7); Potassium 5.3 mmol/L (3.4-5.1); Sodium 143 mmol/L (137-145)
[2018-07-23 14:35] LABS: Parathyroid Hormone Int 93 pg/mL (14-64)
== END ==
PROVIDERS: Family Provider Family Medicine; PCP Family Medicine; Visit Provider Internal Medicine Nephrology
DX: I48.91 Unspecified atrial fibrillation (principal); N18.3 Chronic kidney disease, stage 3 (moderate)
CPT/HCPCS: 36415; 80069; 83970; 85025; 85610

== ENCOUNTER → 2018-08-03 07:21 | Outpatient (CLI) | payer MEDICARE, OTHER, SELFPAY ==
--- NOTE | 2018-08-03 08:46 | PM.TREADMILL ---
Cardiac Stress Test Report Referral & Results Date Patient Seen: 08/03/18 Time Patient Seen: 08:30 Requesting provider: Margarita Rick Indication: Hypertension Procedure Note: After both written and verbal informed consent the patient had an IV started by the diagnostic imaging RN, and then was hooked up to the treadmill monitoring system. The Lexiscan material, and then the Cardiolite tracer, were administered sequentially. An additional 3 min was spent monitoring the patient while supine on the gurney. The patient had a suboptimal response to all infused materials. Minimal increase in heart rate and blood pressure was observed, despite using arm and foot exercises. Impression: Completed Sherie protocol. Will await perfusion imaging. Please note: Actual ECG tracings can be found in the PACS system.
--- NOTE | 2018-08-04 18:30 | DI.NM.S_ITS ---
DATE OF SERVICE: 08/03/2018 PROCEDURE PERFORMED: Vasodilator stress and rest myocardial perfusion imaging with gating to assess ejection fraction and regional wall motion. ORDERING PROVIDER: Margarita Rick MD. INDICATIONS: The patient is a morbidly obese, hypertensive diabetic male with exertional dyspnea. CARDIAC STRESS: Per protocol, 0.4 mg of regadenoson was infused with handgrip exercise. With this, he had a minimal increase in his heart rate from 63 to 71 bpm, and a slight decline in his blood pressure from 132/86 down to 120/70. He had no chest discomfort. His resting ECG shows atrial fibrillation with low- voltage QRS and nonspecific ST-segment abnormalities. With stress, there are no appreciable ST-segment shifts or other arrhythmias. Per protocol, 25.6 mCi a technetium-99 Myoview was injected and the patient was imaged 15 minutes later using a gated SPECT acquisition protocol. He returned the following day and was reinjected with an additional 24.5 mCi of technetium- 99 Myoview and was imaged 30 minutes later, again using a gated SPECT acquisition protocol. FINDINGS: 1. Raw Data: There is fairly poor myocardial tracer uptake relative to other body areas and there is clear attenuation artifact noted. The patient was unable to lay prone to assess for any diaphragmatic attenuation. The lung/heart ratio is borderline elevated at 0.41 which could be a sign of pulmonary congestion. TID ratio was normal at 0.93. 2. Quantitative Gated SPECT: Post stress ejection fraction is estimated at 69% without any obvious focal wall motion abnormality, although image quality is quite poor. Resting ejection fraction is estimated at 61% and appears unchanged from the post stress images. Resting end-diastolic volume is increased at 158 mL. 3. Myocardial Perfusion Imaging: Post stress supine images shows a mild perfusion defect throughout the entire inferior wall becoming slightly more prominent in the distal inferior apex in a pattern that would be consistent with diaphragmatic attenuation. There are no prone images to assess for this. The resting images essentially show an identical perfusion pattern without any clear areas of improvement. IMPRESSION: 1. Probable normal myocardial perfusion study but with reduced sensitivity and specificity because of marginal image quality and questionable hemodynamic impact from regadenoson. 2. Hhky-na-czeliudj fixed inferior defect, more notable distally in a pattern that would be consistent with diaphragmatic attenuation, although prone imaging is not available to assess for this. Given the absence of any obvious regional wall motion abnormality in this distribution, this most likely represents diaphragmatic attenuation but a previous nontransmural infarction cannot be entirely excluded. There is no compelling evidence for significant myocardial ischemia. 3. Probable normal left ventricular systolic function without obvious regional wall motion abnormality with moderate left ventricular enlargement. 4. No angina or ECG evidence of ischemia with pharmacologic stress although with minimal hemodynamic impact with regadenoson. He has chronic atrial fibrillation with a controlled ventricular response without significant heart rate change. 5. Compared to the previous myocardial perfusion study on 06/18/2015, the post stress images appear quite similar, again with an inferior defect that was more prominent apically. The resting images today show this to be a fixed defect whereas the previous study suggested some improvement on the resting images, although to my eye this was minimal. Thus, the post stress images appear quite similar and both were likely related to diaphragmatic attenuation. Previous end-diastolic volume is 162 mL with an ejection fraction of 69% and thus nearly identical to today study. The previous lung/heart ratio was 0.54 suggesting some improvement from the previous exam. Hardeep Will - ALLAN/yanni/ doc#: [id number]/job#: [id number] dd: 08/04/2018 16:40:00 dt: 08/04/2018 18:13:00 DICTATING MD/COPIES TO: Jake Sin MD; Margarita Rick MD COPIES MNE: YING GARZA
== END ==
PROVIDERS: Family Provider Family Medicine; PCP Family Medicine; Visit Provider Internal Medicine Cardiovascular Disease
DX: R06.09 Other forms of dyspnea (principal); I10 Essential (primary) hypertension; I48.2 Chronic atrial fibrillation; E66.01 Morbid (severe) obesity due to excess calories; E11.9 Type 2 diabetes mellitus without complications
CPT/HCPCS: 78452; 93016; 93017; 93018; A9502; J2785

== ENCOUNTER → 2018-09-09 12:13 | Outpatient (CLI) | payer MEDICARE, OTHER, SELFPAY ==
[2018-09-09 12:41] LABS: INR 1.9 (0.9-1.3); Prothrombin Time 22.3 SECONDS (10.1-12.7)
== END ==
PROVIDERS: PCP Family Medicine; Visit Provider Family Medicine
DX: I48.91 Unspecified atrial fibrillation (principal)
CPT/HCPCS: 36415; 85610